=== PATIENT | female | born 1995 | race Caucasian/White ===

== ENCOUNTER 2017-07-21 21:51 | Emergency (ER) ==
[2017-07-21 22:05] VITALS: BP 142/90; TEMP 99; BMI 40.5
--- NOTE | 2017-07-21 22:17 | ED.PDOC ---
General ED Provider: Dr. RONY DIMAS Chief Complaint: Shortness of Air Stated Complaint: Patient is a 21 year old female who comes to the ER with feeling short of breath with pressure to chest since this PM. Complains of a productive cough, not sure of color. She denies fever, vomiting, or diarrhea but admits to nausea. Location of the pain is mid-sternum area Time Seen by Physician: 22:17 Mode of Arrival: Walk-In Information Source: Patient Exam Limitations: No limitations Primary Care Provider: SHELLY EATON Nursing and Triage Documentation Reviewed and Agree: Yes Reviewed sepsis parameters & appropriate labs ordered?: No System Inflammatory Response Syndrome: Not Applicable Sepsis Protocol: For patient's 13 years and over: Temp is 96.8 and below OR 101 and greater Pulse >90 BPM Resp >20/minute Acutely Altered Mental Status Are patient's symptoms suggestive of a new infection, such as: -Pneumonia -Skin, Soft Tissue -Endocarditis -UTI -Bone, Joint Infection -Implantable Device -Acute Abdominal Infection -Wound Infection -Meningitis -Blood Stream Catheter Infection -Unknown System Inflammatory Response Syndrome: Not Applicable Review of Systems - Review Of Systems Constitutional: Reports: No symptoms Eyes: Reports: No symptoms Ears, Nose, Mouth, Throat: Reports: No symptoms Respiratory: Reports: Cough, Short of air Cardiac: Reports: Chest pain GI: Reports: Nausea, Poor appetite : Reports: No symptoms Musculoskeletal: Reports: No symptoms Skin: Reports: No symptoms Neurological: Reports: No symptoms Endocrine: Reports: No symptoms Hematologic/Lymphatic: Reports: No symptoms All Other Systems: Reviewed and Negative Past Medical History - Past Medical History Endocrine: Reports: Hypothyroid Cardiovascular: Reports: Hypertension Respiratory: Reports: None Hematological: Reports: None Gastrointestinal: Reports: GERD Genitourinary: Reports: None Neuro/Psych: Reports: Anxiety, Depression, Bipolar Disorder Musculoskeletal: Reports: None Cancer: Reports: None Last Menstrual Period: LAST MONTH - Surgical History General Surgical History: Reports: Cholecystectomy, Tonsillectomy, Adenoidectomy , Other (Thyroidectomy, Eye surgery right eye, D and C ) - Family History Family History: Reports: None - Social History Smoking Status: Current every day smoker, Heavy tobacco smoker Hx Substance Use: No Alcohol Screening: Occasionally - Immunizations Tetanus Shot up to Date: Yes Physical Exam - Physical Exam Appearance: Well-appearing, Obese Eyes: CLIFF, EOMI, Conjunctiva clear Neck: Supple Respiratory: Airway patent, Breath sounds clear, Breath sounds equal, Respirations nonlabored Cardiovascular: RRR, Pulses normal, No rub, No murmur GI/: Soft, Nontender, No masses, Bowel sounds normal, No Organomegaly Musculoskeletal: Normal strength, ROM intact, No edema, No calf tenderness Skin: Warm, Dry, Normal color Neurological: Sensation intact, Motor intact, Reflexes intact, Cranial nerves intact, Alert, Oriented Psychiatric: Anxious Interpretation - Radiology Interpretation Radiology Interpretation By: ED Physician Radiology Results: Negative Exam Interpreted: Portable CXR - EKG Interpretation Time of EKG #1: 22:30 Rate: Normal Rhythm: Sinus Ectopy: None Interpretation: Left Atrial Enlargement. Critical Care Note - Critical Care Note Total Time (mins): 0 Course - Course Hematology/Chemistry: 07/21/17 22:28 07/21/17 22:28 Orders, Labs, Meds: Lab Review 07/21/17 07/21/17 07/21/17 22:28 22:28 22:28 WBC 7.91 RBC 4.19 L Hgb 13.3 Hct 37.9 MCV 90.5 MCH 31.7 H MCHC 35.1 RDW Coeff of Benigno 12.6 Plt Count 303 Immature Gran % (Auto) 0.3 Neut % (Auto) 50.6 Lymph % (Auto) 41.3 [place] % (Auto) 4.7 Eos % (Auto) 2.5 Baso % (Auto) 0.6 Immature Gran # (Auto) 0.0 Neut # (Auto) 4.0 Lymph # (Auto) 3.3 [place] # (Auto) 0.4 Eos # (Auto) 0.2 Baso # (Auto) 0.1 D-Dimer (Manual) 425.32 Sodium 141 Potassium 3.4 L Chloride 110 H Carbon Dioxide 21 Anion Gap 13.4 BUN 10 Creatinine 0.73 Estimated GFR (MDRD) 99.00 BUN/Creatinine Ratio 13.69 Glucose 106 Calcium 8.5 Total Bilirubin < 0.3 AST 18 ALT 20 Alkaline Phosphatase 111 H Total Creatine Kinase 148 CK-MB (CK-2) 0.8 CK-MB (CK-2) % 0.00584 Troponin I < 0.0100 Total Protein 6.8 Albumin 3.7 Globulin 3.1 Albumin/Globulin Ratio 1.19 Urine Test 07/21/17 22:50 WBC RBC Hgb Hct MCV MCH MCHC RDW Coeff of Benigno Plt Count Immature Gran % (Auto) Neut % (Auto) Lymph % (Auto) [place] % (Auto) Eos % (Auto) Baso % (Auto) Immature Gran # (Auto) Neut # (Auto) Lymph # (Auto) [place] # (Auto) Eos # (Auto) Baso # (Auto) D-Dimer (Manual) Sodium Potassium Chloride Carbon Dioxide Anion Gap BUN Creatinine Estimated GFR (MDRD) BUN/Creatinine Ratio Glucose Calcium Total Bilirubin AST ALT Alkaline Phosphatase Total Creatine Kinase CK-MB (CK-2) CK-MB (CK-2) % Troponin I Total Protein Albumin Globulin Albumin/Globulin Ratio Urine Test Negative Orders Category Date Time Status EKG-(ED ONLY) Stat CARDIO 07/21/17 22:18 Ordered CBC W/ AUTO DIFF Stat LAB 07/21/17 22:28 Completed COMPREHENSIVE METABOLIC PANEL Stat LAB 07/21/17 22:28 Completed CREATINE KINASE Stat LAB 07/21/17 22:28 Completed D-DIMER Stat LAB 07/21/17 22:28 Completed TROPONIN I Stat LAB 07/21/17 22:28 Completed URINE Stat LAB 07/21/17 22:50 Completed CHEST, 1V AP ONLY Stat RADS 07/21/17 22:18 Taken Vital Signs: Temp Pulse Resp BP Pulse Ox 07/21/17 21:52 99 F 88 20 142/90 H 98 Departure - Departure Time of Disposition: 23:18 Disposition: HOME SELF-CARE Discharge Problem: Bronchitis Instructions: Acute Bronchitis (ED), How to Stop Smoking (ED) Condition: Stable Pt referred to PMD for follow-up: Yes IPMP verified?: No Additional Instructions: Stop smoking Take Medications as prescribed Follow up with PCP in 3 days Prescriptions: Azithromycin [Zithromax Tri-Jc] 500 mg PO DAILY #3 tablet Methylprednisolone [Medrol Dosepak] 4 mg PO DIRECTED #1 pkg Allergies/Adverse Reactions: Allergies morphine Adverse Reaction (Verified 07/21/17 22:01) REDNESS, BURNING AND ITCHING Home Medications: Ambulatory Orders Azithromycin [Zithromax Tri-Jc] 500 mg PO DAILY #3 tablet 07/21/17 Esomeprazole Magnesium [Nexium] 40 mg PO BID 07/21/17 Fluoxetine HCl [Prozac] 40 mg PO DAILY 07/21/17 Lamotrigine [Lamictal] 100 mg PO DAILY 07/21/17 Levothyroxine Sodium [Synthroid] 200 mcg PO DAILY 07/21/17 Methylprednisolone [Medrol Dosepak] 4 mg PO DIRECTED #1 pkg 07/21/17 Norethindrone AC-Eth Estradiol [Loestrin 21 1-20 Tablet] 1 each PO DAILY Disposition Discussed With: Patient, Family
--- NOTE | 2017-07-22 07:36 | DI ---
EXAM: Single view of the chest HISTORY: Chest pain and shortness of breath. COMPARISON: None FINDINGS: Cardiomediastinal silhouette is normal. There is no pneumothorax or pleural effusion. The re is no consolidation, nodule or mass. The osseous structures are unremarkable. IMPRESSION: No acute cardiopulmonary process.
== END 2017-07-21 23:34 | disposition home or self-care (01) ==
LOC: ED 21:51
DX: J40 Bronchitis, not specified as acute or chronic (principal); F17.210 Nicotine dependence, cigarettes, uncomplicated; I10 Essential (primary) hypertension; E03.9 Hypothyroidism, unspecified
CPT/HCPCS: 36415; 80053; 81025; 82550; 82553; 84484; 85025; 85379; 93005; 93010; 99283

== ENCOUNTER 2017-08-12 08:10 | Outpatient (CLI) ==
--- NOTE | 2017-08-12 08:51 | US ---
EXAM: Ultrasound abdomen limited right upper quadrant HISTORY: Epigastric pain COMPARISON: None TECHNIQUE: Limited ultrasound abdomen right upper quadrant was performed FINDINGS: Visualized portion pancreas appears normal. Portions of the pancreas obscured secondary b owel gas shadowing. Liver normal in size and echogenicity. Main portal vein patent with normal dire ction of flow. Patient status post cholecystectomy. No biliary duct dilation with common bile duct measuring 0.4 cm. IMPRESSION: Status post cholecystectomy. No biliary duct dilation.
== END 2017-08-12 08:11 | disposition home or self-care (01) ==
LOC: RAD 08:10
PROVIDERS: ATTEND Family Medicine
DX: R10.13 Epigastric pain (principal)

== ENCOUNTER 2017-10-03 14:33 | Emergency (ER) | payer OTHER ==
[2017-10-03 14:37] VITALS: BP 141/104; TEMP 99.1; BMI 39.9
[2017-10-03] MEDS ORDERED: MORPHINE 4 MG/ML SYRINGE IM STA (14:52)
[2017-10-03] MEDS ORDERED: ZOFRAN 4 MG/2 ML IM STA (14:53)
[2017-10-03] MEDS ORDERED: DILAUDID IM STA (15:10)
[2017-10-03] MEDS: DILAUDID IVP STA ×2 (15:19→17:08)
--- NOTE | 2017-10-03 16:20 | CT ---
Exam: CT abdomen pelvis with intravenous contrast. Comparison: None available. Reason for exam: Pain. FINDINGS: No pleural effusion, or focal consolidation. The liver, spleen, adrenal glands, and pancreas appear grossly unremarkable. The gallbladder has been removed. No hydronephrosis, hydroureter, or nephrolithiasis in either kidney. Fluid-filled loops of small bowel are seen throughout the abdomen with mild small bowel wall thickeni ng. No inflammatory changes are seen within the abdominal or pelvic fat. No intra-abdominal free air or pelvic free fluid. The bladder appears grossly unremarkable although evaluation is limited by non distension. Small foci of air are seen in the right buttock soft tissues likely injections No suspicious appearing osteoblastic or osteolytic lesions. Impression: 1. Fluid-filled loops of small bowel with mild small bowel wall thickening. Imaging findings can be seen physiologically but may also be seen with enteritis. 2. Otherwise, no inflammatory findings are seen within the abdomen or pelvis. 3. Air in the subcutaneous fat of the right buttock presumably from injections.
--- NOTE | 2017-10-03 16:46 | ED.PDOC ---
General ED Provider: Dr. ADELA DOZIER Chief Complaint: Abdominal Pain Stated Complaint: abdominal pain Time Seen by Physician: 14:33 Mode of Arrival: Walk-In Information Source: Patient Exam Limitations: No limitations Primary Care Provider: SHELLY EATON Nursing and Triage Documentation Reviewed and Agree: Yes Reviewed sepsis parameters & appropriate labs ordered?: Yes System Inflammatory Response Syndrome: Not Applicable Sepsis Protocol: For patient's 13 years and over: Temp is 96.8 and below OR 101 and greater Pulse >90 BPM Resp >20/minute Acutely Altered Mental Status Are patient's symptoms suggestive of a new infection, such as: -Pneumonia -Skin, Soft Tissue -Endocarditis -UTI -Bone, Joint Infection -Implantable Device -Acute Abdominal Infection -Wound Infection -Meningitis -Blood Stream Catheter Infection -Unknown System Inflammatory Response Syndrome: Not Applicable GI Complaint Exam - Abdominal Pain Complaint/Exam Onset: Gradual Duration: 3 days Symptoms Are: Still present Timing: Intermittent Initial Severity: Moderate Current Severity: Moderate Location of Pain: Diffuse Radiates To: Reports: Back (right ). Denies: Chest, Flank, LLQ, RLQ, Inguinal Character: Reports: Sharp Aggravating: Reports: None Alleviating: Reports: None Associated Signs and Symptoms: Reports: Back pain, Decreased appetite, Nausea, Vomiting (x4/24 hr). Denies: Diaphoresis, Fever, Cough, Chest pain, Dizziness, Constipation, Blood in stool, Dysuria, Urinary frequency, Decreased urine output , Vaginal bleeding, Vaginal discharge, Diarrhea, Sore throat, Decreased activity : 2 Para: 1 Hx Total # of Abortions (Spontaneous & Elective): 1 AAA Risk Factors: Reports: None Cardiac Risk Factors: Reports: None Ectopic Risk Factors: Reports: None Ovarian Torsion Risk Factors: Reports: None Surgical Obstruction Risk Factors: Reports: None Related Surgical History: Reports: Cholecystectomy Differential Diagnoses: Bowel Obstruction, Constipation, Gastroenteritis, Pancreatitis Review of Systems - Review Of Systems Constitutional: Reports: No symptoms Eyes: Reports: No symptoms Ears, Nose, Mouth, Throat: Reports: No symptoms Respiratory: Reports: No symptoms Cardiac: Reports: No symptoms GI: Reports: Abdominal pain, Nausea, Vomiting : Reports: No symptoms Musculoskeletal: Reports: No symptoms Skin: Reports: No symptoms Neurological: Reports: No symptoms Endocrine: Reports: No symptoms Hematologic/Lymphatic: Reports: No symptoms All Other Systems: Reviewed and Negative Past Medical History - Past Medical History Endocrine: Reports: Hypothyroid Cardiovascular: Reports: Hypertension Respiratory: Reports: None Hematological: Reports: None Gastrointestinal: Reports: GERD Genitourinary: Reports: None Neuro/Psych: Reports: Anxiety, Depression, Bipolar Disorder Musculoskeletal: Reports: None Cancer: Reports: None Last Menstrual Period: SEPTEMBER 20 - Surgical History General Surgical History: Reports: Cholecystectomy, Tonsillectomy, Adenoidectomy , Other (Thyroidectomy, Eye surgery right eye, D and C ) - Family History Family History: Reports: None - Social History Smoking Status: Current every day smoker, Heavy tobacco smoker Hx Substance Use: No Alcohol Screening: Occasionally Physical Exam - Physical Exam Appearance: Well-appearing, No pain distress, Well-nourished Eyes: CLIFF, EOMI, Conjunctiva clear ENT: Ears normal, Nose normal, Oropharynx normal Respiratory: Airway patent, Breath sounds clear, Breath sounds equal, Respirations nonlabored Cardiovascular: RRR, Pulses normal, No rub, No murmur GI/: Soft, Nontender, No masses, Bowel sounds normal, No Organomegaly Musculoskeletal: Normal strength, ROM intact, No edema, No calf tenderness Skin: Warm, Dry, Normal color Neurological: Sensation intact, Motor intact, Reflexes intact, Cranial nerves intact, Alert, Oriented Psychiatric: Affect appropriate, Mood appropriate Interpretation - Radiology Interpretation Radiology Interpretation By: Radiologist Radiology Results: No acute changes Critical Care Note - Critical Care Note Total Time (mins): 0 Course - Course Hematology/Chemistry: 10/03/17 14:57 10/03/17 14:57 Orders, Labs, Meds: Lab Review 10/03/17 10/03/17 10/03/17 14:57 14:57 14:57 WBC 8.45 RBC 4.25 Hgb 13.3 Hct 37.8 MCV 88.9 MCH 31.3 H MCHC 35.2 RDW Coeff of Benigno 12.2 Plt Count 306 Immature Gran % (Auto) 0.2 Neut % (Auto) 53.8 Lymph % (Auto) 38.5 [place] % (Auto) 4.9 Eos % (Auto) 2.1 Baso % (Auto) 0.5 Immature Gran # (Auto) 0.0 Neut # (Auto) 4.6 Lymph # (Auto) 3.3 [place] # (Auto) 0.4 Eos # (Auto) 0.2 Baso # (Auto) 0.0 Sodium 140 Potassium 3.5 Chloride 110 H Carbon Dioxide 22 Anion Gap 11.5 BUN 8 Creatinine 0.77 Estimated GFR (MDRD) 93.00 BUN/Creatinine Ratio 10.38 Glucose 97 Calcium 8.9 Total Bilirubin 0.3 AST 21 ALT 25 Alkaline Phosphatase 111 H Total Protein 7.1 Albumin 3.7 Globulin 3.4 Albumin/Globulin Ratio 1.09 Amylase 35 Lipase 32 Serum , Qual Negative Urine Color Urine Clarity Urine pH Ur Specific Percival Urine Protein Urine Glucose (UA) Urine Ketones Urine Blood Urine Nitrite Urine Bilirubin Urine Urobilinogen Ur Leukocyte Esterase Urine Microscopic WBC Ur Squamous Epith Cells Urine Bacteria Urine Mucus 10/03/17 15:10 WBC RBC Hgb Hct MCV MCH MCHC RDW Coeff of Benigno Plt Count Immature Gran % (Auto) Neut % (Auto) Lymph % (Auto) [place] % (Auto) Eos % (Auto) Baso % (Auto) Immature Gran # (Auto) Neut # (Auto) Lymph # (Auto) [place] # (Auto) Eos # (Auto) Baso # (Auto) Sodium Potassium Chloride Carbon Dioxide Anion Gap BUN Creatinine Estimated GFR (MDRD) BUN/Creatinine Ratio Glucose Calcium Total Bilirubin AST ALT Alkaline Phosphatase Total Protein Albumin Globulin Albumin/Globulin Ratio Amylase Lipase Serum , Qual Urine Color Yellow Urine Clarity Cloudy Urine pH 6.0 Ur Specific Percival 1.025 Urine Protein 1+ Urine Glucose (UA) Negative Urine Ketones Trace Urine Blood Negative Urine Nitrite Negative Urine Bilirubin 1+ Urine Urobilinogen 1.0 Ur Leukocyte Esterase Negative Urine Microscopic WBC 0-2 Ur Squamous Epith Cells Tntc Urine Bacteria Trace Urine Mucus 3+ Orders Category Date Time Status NPO REMINDER: IMAGING ONCE CARE 10/03/17 15:26 Completed AMYLASE Stat LAB 10/03/17 14:57 Completed CBC W/ AUTO DIFF Stat LAB 10/03/17 14:57 Completed COMPREHENSIVE METABOLIC PANEL Stat LAB 10/03/17 14:57 Completed LIPASE Stat LAB 10/03/17 14:57 Completed SERUM Stat LAB 10/03/17 14:57 Completed URINALYSIS C & S IF INDICATED Stat LAB 10/03/17 15:10 Completed Hydromorphone HCl [Dilaudid] MEDS 10/03/17 15:03 Discontinued 0.5 mg IVP ONCE STA Ondansetron HCl/Pf [Zofran 4 mg/2 ml] MEDS 10/03/17 14:53 Discontinued 4 mg IM ONCE STA CT ABDOMEN/PELVIS W CONTRAST Stat RADS 10/03/17 15:25 Completed Medications Discontinued Medications Generic Name Dose Route Start Last Admin Trade Name Roosevelt PRN Reason Stop Dose Admin Hydromorphone HCl 0.5 mg 10/03/17 15:03 10/03/17 15:19 Dilaudid IVP 10/03/17 15:04 0.5 mg ONCE STA Administration Ondansetron HCl 4 mg 10/03/17 14:53 10/03/17 15:19 Zofran 4 Mg/2 Ml IM 10/03/17 14:54 4 mg ONCE STA Administration Vital Signs: Temp Pulse Resp BP Pulse Ox 10/03/17 14:33 99.1 F 104 H 18 141/104 H 95 Departure - Departure Time of Disposition: 17:00 Disposition: HOME SELF-CARE Discharge Problem: Abdominal pain, Acute gastroenteritis Instructions: Abdominal Pain (ED) Condition: Good Pt referred to PMD for follow-up: Yes IPMP verified?: No Additional Instructions: Please call your Family Physician as soon as possible to schedule a follow-up appointment. Allergies/Adverse Reactions: Allergies morphine Adverse Reaction (Verified 10/03/17 14:37) REDNESS, BURNING AND ITCHING Home Medications: Ambulatory Orders Esomeprazole Magnesium [Nexium] 40 mg PO BID 07/21/17 Fluoxetine HCl [Prozac] 40 mg PO DAILY 07/21/17 Lamotrigine [Lamictal] 100 mg PO DAILY 07/21/17 Levothyroxine Sodium [Synthroid] 200 mcg PO DAILY 07/21/17 Norethindrone AC-Eth Estradiol [Loestrin 21 1-20 Tablet] 1 each PO DAILY Hydrocodone/Acetaminophen [[place] 10-325 Tablet] 1 each PO Q8HR #14 tablet
== END 2017-10-03 17:00 | disposition home or self-care (01) ==
LOC: ED 14:33
DX: K52.9 Noninfective gastroenteritis and colitis, unspecified (principal); I10 Essential (primary) hypertension; E03.9 Hypothyroidism, unspecified; F17.210 Nicotine dependence, cigarettes, uncomplicated; Z79.899 Other long term (current) drug therapy
CPT/HCPCS: 36415; 80053; 81001; 82150; 83690; 84703; 85025; 96372; 99283

== ENCOUNTER 2017-10-24 20:53 | Emergency (ER) ==
[2017-10-24] MEDS ORDERED: PHENERGAN 25 MG/ML VIAL 25 MG in SODIUM CHLORIDE 50 ML IV STA (20:58)
[2017-10-24] MEDS ORDERED: DILAUDID IVP STA ×2 (20:58→21:54)
[2017-10-24] MEDS ORDERED: PROTONIX IV IVP STA (20:59)
[2017-10-24 21:00] VITALS: BP 151/103; TEMP 98.3; BMI 41.3
[2017-10-24] MEDS ORDERED: PHENERGAN 25 MG/ML VIAL ONE (21:10)
--- NOTE | 2017-10-24 22:21 | CT ---
Exam: CT of the abdomen and pelvis with contrast History: Right upper quadrant pain Technique: [address] of the abdomen and pelvis following intravenous contrast. Contrast is excretory phase. Multiplanar reformations were performed. FINDINGS: Technically inhibited secondary to delayed contrast excretory phase. See chest CT earlier same day the lung bases. No significant liver abnormality. The adrenals, pancreas and spleen are unr emarkable. The stomach and hiatus are unremarkable.Prior cholecystectomy. Kidneys and proximal collec ting system are unremarkable. The appendix is normal. Bowel loops demonstrate normal caliber. No infl amatory change seen in the mesentery or retroperitoneum. Vascular structures appear normal. Pelvic genitourinary structures appear normal. Pelvic bowel loops are unremarkable. No inflammatory c hange in the pelvic fat. No acute abnormality of the abdominal or pelvic skeleton. Impression: 1. No inflammatory process, bowel or urinary obstruction is seen. No acute findings of the abdomen or pelvis.
--- NOTE | 2017-10-24 22:45 | CT ---
Exam: CT angiography of the chest History: Chest pain Technique: [address] of the chest utilizing CT angiography protocol. Multiplanar and max imum intensity projection reformations were performed. FINDINGS: Technically adequate for evaluation of pulmonary arteries and aorta. There are no pulmona ry artery filling defects. The the lung windows show no pulmonary parenchymal abnormalities. The hea rt, great vessels and pericardium appear normal including the aorta. No pathologic lymph node enlarg ement or abundance. No acute findings of the chest wall soft tissues or bony thorax. No abnormaliti es of the upper abdomen. Impression: 1. No evidence of pulmonary artery thrombus. No acute findings of the chest.
--- NOTE | 2017-10-24 23:14 | ED.PDOC ---
General ED Provider: Dr. CHELO AL-ER Chief Complaint: Abdominal Pain Stated Complaint: im hurting Time Seen by Physician: 20:55 Mode of Arrival: Walk-In Information Source: Patient Exam Limitations: No limitations Primary Care Provider: SHELLY EATON Nursing and Triage Documentation Reviewed and Agree: Yes Reviewed sepsis parameters & appropriate labs ordered?: Yes System Inflammatory Response Syndrome: Not Applicable Sepsis Protocol: For patient's 13 years and over: Temp is 96.8 and below OR 101 and greater Pulse >90 BPM Resp >20/minute Acutely Altered Mental Status Are patient's symptoms suggestive of a new infection, such as: -Pneumonia -Skin, Soft Tissue -Endocarditis -UTI -Bone, Joint Infection -Implantable Device -Acute Abdominal Infection -Wound Infection -Meningitis -Blood Stream Catheter Infection -Unknown GI Complaint Exam - Abdominal Pain Complaint/Exam Onset: Sudden Duration: several hours Symptoms Are: Still present Timing: Constant Initial Severity: Mild Current Severity: Moderate Location of Pain: Discrete, RUQ Character: Reports: Dull, Aching, Cramping Aggravating: Reports: None Alleviating: Reports: None Associated Signs and Symptoms: Reports: Nausea Related Surgical History: Reports: Cholecystectomy Patient Rh Status: Unknown Abdominal Findings: Present: None. Absent: Rebound tenderness, Peritoneal signs Differential Diagnoses: Pancreatitis Quality Indicator For Non-Traumatic Chest Pain/Syncope: EKG Performed Review of Systems - Review Of Systems Constitutional: Reports: No symptoms Eyes: Reports: No symptoms Ears, Nose, Mouth, Throat: Reports: No symptoms Respiratory: Reports: No symptoms Cardiac: Reports: No symptoms GI: Reports: Abdominal pain, Nausea, Vomiting : Reports: No symptoms Musculoskeletal: Reports: No symptoms Skin: Reports: No symptoms Neurological: Reports: No symptoms Endocrine: Reports: No symptoms Hematologic/Lymphatic: Reports: No symptoms All Other Systems: Reviewed and Negative Past Medical History - Past Medical History Previously Healthy: No Endocrine: Reports: Hypothyroid Cardiovascular: Reports: Hypertension Respiratory: Reports: None Hematological: Reports: None Gastrointestinal: Reports: GERD Genitourinary: Reports: None Neuro/Psych: Reports: Anxiety, Depression, Bipolar Disorder Musculoskeletal: Reports: None Cancer: Reports: None Last Menstrual Period: [id number] - Surgical History General Surgical History: Reports: Cholecystectomy, Tonsillectomy, Adenoidectomy , Other (Thyroidectomy, Eye surgery right eye, D and C ) - Family History Family History: Reports: None - Social History Smoking Status: Current every day smoker, Heavy tobacco smoker Hx Substance Use: No Alcohol Screening: Occasionally - Immunizations Tetanus Shot up to Date: Yes Physical Exam - Physical Exam Appearance: Well-appearing, No pain distress, Well-nourished Pain Distress: Moderate Eyes: CLIFF, EOMI, Conjunctiva clear ENT: Ears normal, Nose normal, Oropharynx normal Respiratory: Airway patent Cardiovascular: RRR, Pulses normal, No rub, No murmur GI/: Soft, No masses, Bowel sounds normal, No Organomegaly, Tender Musculoskeletal: Normal strength, ROM intact, No edema, No calf tenderness Skin: Warm Neurological: Sensation intact Psychiatric: Affect appropriate, Mood appropriate Interpretation - Radiology Interpretation Radiology Interpretation By: Radiologist Radiology Results: Negative Exam Interpreted: CT Scan - EKG Interpretation Time of EKG #1: 23:14 Rate: Normal Rhythm: Sinus Ectopy: None Witt: NL ST Segment: Normal Re-Evaluation - Re-Evaluation Time of Re-Evaluation: 23:14 Status: Improved Vital Signs Stable: Yes Pain Level: 1 Appearance: NAD Lungs: Clear Skin: Warm and Dry Neuro: Alert and Oriented X3 CV: RRR Critical Care Note - Critical Care Note Total Time (mins): 0 Course - Course Hematology/Chemistry: 10/24/17 21:07 10/24/17 21:07 Orders, Labs, Meds: Lab Review 10/24/17 10/24/17 10/24/17 21:07 21:07 21:07 WBC 9.02 RBC 4.31 Hgb 13.4 Hct 38.1 MCV 88.4 MCH 31.1 H MCHC 35.2 RDW Coeff of Benigno 12.3 Plt Count 331 Immature Gran % (Auto) 0.2 Neut % (Auto) 47.7 Lymph % (Auto) 42.7 [place] % (Auto) 5.4 Eos % (Auto) 3.0 Baso % (Auto) 1.0 Immature Gran # (Auto) 0.0 Neut # (Auto) 4.3 Lymph # (Auto) 3.9 H [place] # (Auto) 0.5 Eos # (Auto) 0.3 Baso # (Auto) 0.1 Sodium 138 Potassium 3.4 L Chloride 109 H Carbon Dioxide 19 L Anion Gap 13.4 BUN 8 Creatinine 0.73 Estimated GFR (MDRD) 99.00 BUN/Creatinine Ratio 10.95 Glucose 97 Calcium 8.7 Total Bilirubin 0.3 AST 18 ALT 20 Alkaline Phosphatase 110 H Total Protein 7.1 Albumin 3.6 Globulin 3.5 Albumin/Globulin Ratio 1.03 Amylase 45 Lipase 39 Serum , Qual Negative Urine Color Urine Clarity Urine pH Ur Specific [place] Urine Protein Urine Glucose (UA) Urine Ketones Urine Blood Urine Nitrite Urine Bilirubin Urine Urobilinogen Ur Leukocyte Esterase Urine Microscopic WBC Ur Squamous Epith Cells Urine Mucus 10/24/17 21:56 WBC RBC Hgb Hct MCV MCH MCHC RDW Coeff of Benigno Plt Count Immature Gran % (Auto) Neut % (Auto) Lymph % (Auto) [place] % (Auto) Eos % (Auto) Baso % (Auto) Immature Gran # (Auto) Neut # (Auto) Lymph # (Auto) [place] # (Auto) Eos # (Auto) Baso # (Auto) Sodium Potassium Chloride Carbon Dioxide Anion Gap BUN Creatinine Estimated GFR (MDRD) BUN/Creatinine Ratio Glucose Calcium Total Bilirubin AST ALT Alkaline Phosphatase Total Protein Albumin Globulin Albumin/Globulin Ratio Amylase Lipase Serum , Qual Urine Color Yellow Urine Clarity Clear Urine pH 6.0 Ur Specific [place] 1.020 Urine Protein Trace Urine Glucose (UA) Negative Urine Ketones Negative Urine Blood Negative Urine Nitrite Negative Urine Bilirubin Negative Urine Urobilinogen 0.2 Ur Leukocyte Esterase Trace Urine Microscopic WBC 2-5 Ur Squamous Epith Cells 10-20 Urine Mucus Trace Orders Category Date Time Status NPO REMINDER: IMAGING ONCE CARE 10/24/17 20:57 Completed IV [ED IV/MEDIPORT/POWERPORT] .ONCE EMERGENCY 10/24/17 20:57 Active AMYLASE Stat LAB 10/24/17 21:07 Completed CBC W/ AUTO DIFF Stat LAB 10/24/17 21:07 Completed COMPREHENSIVE METABOLIC PANEL Stat LAB 10/24/17 21:07 Completed LIPASE Stat LAB 10/24/17 21:07 Completed SERUM Stat LAB 10/24/17 21:07 Completed URINALYSIS C & S IF INDICATED Stat LAB 10/24/17 21:56 Completed 0.9 % Sodium Chloride [Saline Flush] MEDS 10/24/17 20:57 Ordered 1 syr IVF PRN PRN Hydromorphone HCl [Dilaudid] MEDS 10/24/17 20:58 Discontinued 0.5 mg IVP ONCE STA Hydromorphone HCl [Dilaudid] MEDS 10/24/17 21:54 Discontinued 0.5 mg IVP ONCE STA Pantoprazole Sodium [Protonix IV] MEDS 10/24/17 20:59 Discontinued 40 mg IVP ONCE STA Promethazine HCl [Phenergan 25 mg/ml Vial] MEDS 10/24/17 21:10 Discontinued 25 mg .ROUTE .STK-MED ONE Promethazine HCl [Phenergan 25 mg/ml Vial] 25 mg MEDS 10/24/17 20:58 Discontinued 0.9 % Sodium Chloride [Sodium Chloride] [address] ABDOMEN/PELVIS W CONTRAST Stat RADS 10/24/17 20:[address] CHEST PE PROTOCOL Stat RADS 10/24/17 20:57 Completed Medications Generic Name Dose Route Start Last Admin Trade Name Freq PRN Reason Stop Dose Admin Sodium Chloride 1 syr 10/24/17 20:57 10/24/17 21:21 Saline Flush IVF 1 syr PRN PRN Administration To flush IV Discontinued Medications Generic Name Dose Route Start Last Admin Trade Name Freq PRN Reason Stop Dose Admin Hydromorphone HCl 0.5 mg 10/24/17 20:58 10/24/17 21:20 Dilaudid IVP 10/24/17 20:59 0.5 mg ONCE STA Administration Hydromorphone HCl 0.5 mg 10/24/17 21:54 10/24/17 22:12 Dilaudid IVP 10/24/17 21:55 0.5 mg ONCE STA Administration Promethazine HCl 25 mg/ Sodium 51 mls @ 75 mls/hr 10/24/17 20:58 10/24/17 21: 19 Chloride IV 10/24/17 21:38 75 mls/hr ONCE STA Administration Pantoprazole Sodium 40 mg 10/24/17 20:59 10/24/17 21:20 Protonix Iv IVP 10/24/17 21:00 40 mg ONCE STA Administration Vital Signs: Temp Pulse Resp BP Pulse Ox 10/24/17 20:54 98.3 F 99 H 18 151/103 H 97 Departure - Departure Time of Disposition: 23:15 Disposition: HOME SELF-CARE Discharge Problem: Abdominal pain Instructions: Acute Abdominal Pain (ED) Condition: Good Pt referred to PMD for follow-up: Yes IPMP verified?: No Additional Instructions: f/u with pcp Allergies/Adverse Reactions: Allergies morphine Adverse Reaction (Verified 10/24/17 20:57) REDNESS, BURNING AND ITCHING Home Medications: Ambulatory Orders Esomeprazole Magnesium [Nexium] 40 mg PO BID 07/21/17 Fluoxetine HCl [Prozac] 40 mg PO DAILY 07/21/17 Lamotrigine [Lamictal] 100 mg PO DAILY 07/21/17 Levothyroxine Sodium [Synthroid] 200 mcg PO DAILY 07/21/17 Norethindrone AC-Eth Estradiol [Loestrin 21 1-20 Tablet] 1 each PO DAILY Disposition Discussed With: Patient
== END 2017-10-24 22:35 | disposition home or self-care (01) ==
LOC: ED 20:53
DX: R10.11 Right upper quadrant pain (principal); R11.2 Nausea with vomiting, unspecified; K21.9 Gastro-esophageal reflux disease without esophagitis; E03.9 Hypothyroidism, unspecified; I10 Essential (primary) hypertension; Z79.899 Other long term (current) drug therapy; F17.210 Nicotine dependence, cigarettes, uncomplicated; Z90.49 Acquired absence of other specified parts of digestive tract
CPT/HCPCS: 36415; 80053; 81001; 82150; 83690; 84703; 85025; 96365; 96375; 96376; 99284

== ENCOUNTER 2017-11-08 18:44 | Emergency (ER) ==
[2017-11-08 18:47] VITALS: BP 152/98; TEMP 98.9; BMI 41.3
[2017-11-08] MEDS ORDERED: ZOFRAN 4 MG/2 ML IVP STA (19:36)
[2017-11-08] MEDS ORDERED: DEMEROL 50 MG/ML VIAL IVP STA (19:36)
[2017-11-08] MEDS ORDERED: GI COCKTAIL PO STA ×2 (19:36→20:55)
--- NOTE | 2017-11-08 20:04 | ED.PDOC ---
General ED Provider: Dr. YO BAUTISTA Chief Complaint: Abdominal Pain Stated Complaint: Came for the epigastric abdominal pain, started 4 pm today, vomited some blood, had similar episode couple days ago, for which she was seen and evaluated at [facility]. they informed her that she has Bleeding hernia. per patient Time Seen by Physician: 20:00 Mode of Arrival: Walk-In Information Source: Patient Nursing and Triage Documentation Reviewed and Agree: Yes Reviewed sepsis parameters & appropriate labs ordered?: Yes System Inflammatory Response Syndrome: Not Applicable Sepsis Protocol: For patient's 13 years and over: Temp is 96.8 and below OR 101 and greater Pulse >90 BPM Resp >20/minute Acutely Altered Mental Status Are patient's symptoms suggestive of a new infection, such as: -Pneumonia -Skin, Soft Tissue -Endocarditis -UTI -Bone, Joint Infection -Implantable Device -Acute Abdominal Infection -Wound Infection -Meningitis -Blood Stream Catheter Infection -Unknown GI Complaint Exam - Abdominal Pain Complaint/Exam Onset: Gradual Symptoms Are: Still present Timing: Constant Initial Severity: Severe Current Severity: Severe Location of Pain: Epigastric Character: Reports: Dull, Aching, Cramping Aggravating: Reports: Food Alleviating: Reports: None Associated Signs and Symptoms: Reports: Nausea, Vomiting. Denies: Diaphoresis, Fever, Cough, Chest pain, Dizziness, Back pain, Constipation, Blood in stool, Dysuria, Urinary frequency, Decreased urine output, Decreased appetite, Vaginal bleeding, Vaginal discharge, Diarrhea, Sore throat, Decreased activity Related History: Reports: Similar episode AAA Risk Factors: Reports: None Cardiac Risk Factors: Reports: None Ectopic Risk Factors: Reports: None Ovarian Torsion Risk Factors: Reports: None Surgical Obstruction Risk Factors: Reports: None Related Surgical History: Reports: None Patient Rh Status: Unknown Abdominal Findings: Present: None Differential Diagnoses: PUD Review of Systems - Review Of Systems Constitutional: Reports: No symptoms Eyes: Reports: No symptoms Ears, Nose, Mouth, Throat: Reports: No symptoms Respiratory: Reports: No symptoms Cardiac: Reports: No symptoms GI: Reports: Abdominal pain : Reports: No symptoms Musculoskeletal: Reports: No symptoms Skin: Reports: No symptoms Neurological: Reports: No symptoms Endocrine: Reports: No symptoms Hematologic/Lymphatic: Reports: No symptoms All Other Systems: Reviewed and Negative Past Medical History - Past Medical History Previously Healthy: No Endocrine: Reports: Hypothyroid Cardiovascular: Reports: Hypertension Respiratory: Reports: None Hematological: Reports: None Gastrointestinal: Reports: GERD Genitourinary: Reports: None Neuro/Psych: Reports: Anxiety, Depression, Bipolar Disorder Musculoskeletal: Reports: None Cancer: Reports: None Last Menstrual Period: LAST MONTH - Surgical History General Surgical History: Reports: Cholecystectomy, Tonsillectomy, Adenoidectomy , Other (Thyroidectomy, Eye surgery right eye, D and C ) - Family History Family History: Reports: None - Social History Smoking Status: Current every day smoker, Heavy tobacco smoker Hx Substance Use: No Alcohol Screening: None - Immunizations Tetanus Shot up to Date: Yes Physical Exam - Physical Exam Appearance: Ill-appearing, Obese Eyes: CLIFF, EOMI, Conjunctiva clear ENT: Ears normal, Nose normal, Oropharynx normal Respiratory: Airway patent, Breath sounds clear, Breath sounds equal, Respirations nonlabored Cardiovascular: RRR, Pulses normal, No rub, No murmur GI/: Soft, Tender Musculoskeletal: Normal strength, ROM intact, No edema, No calf tenderness Skin: Warm, Dry, Normal color Neurological: Sensation intact, Motor intact, Reflexes intact, Cranial nerves intact, Alert, Oriented Psychiatric: Affect appropriate, Mood appropriate Interpretation - Radiology Interpretation Radiology Interpretation By: Radiologist Radiology Results: Negative Exam Interpreted: CT Scan Re-Evaluation - Re-Evaluation Time of Re-Evaluation: 21:59 Status: Improved Critical Care Note - Critical Care Note Total Time (mins): 30 Course - Course Hematology/Chemistry: 11/08/17 19:40 11/08/17 19:40 Orders, Labs, Meds: Lab Review 11/08/17 11/08/17 11/08/17 19:40 19:40 19:48 WBC 9.10 RBC 4.16 L Hgb 13.0 Hct 37.0 MCV 88.9 MCH 31.3 H MCHC 35.1 RDW Coeff of Benigno 12.3 Plt Count 285 Immature Gran % (Auto) 0.2 Neut % (Auto) 56.2 Lymph % (Auto) 34.7 [place] % (Auto) 5.5 Eos % (Auto) 2.9 Baso % (Auto) 0.5 Immature Gran # (Auto) 0.0 Neut # (Auto) 5.1 Lymph # (Auto) 3.2 [place] # (Auto) 0.5 Eos # (Auto) 0.3 Baso # (Auto) 0.1 Sodium 138 Potassium 3.4 L Chloride 110 H Carbon Dioxide 18 L Anion Gap 13.4 BUN 9 Creatinine 0.71 Estimated GFR (MDRD) 102.00 BUN/Creatinine Ratio 12.67 Glucose 125 H Calcium 8.6 Total Bilirubin 0.3 AST 18 ALT 20 Alkaline Phosphatase 109 H Total Protein 6.8 Albumin 3.5 Globulin 3.3 Albumin/Globulin Ratio 1.06 Amylase 45 Lipase 43 Urine Test Negative Urine Opiates Screen Ur Oxycodone Screen Urine Methadone Screen Ur Propoxyphene Screen Ur Barbiturates Screen U Tricyclic Antidepress Ur Phencyclidine Scrn Ur Amphetamine Screen U Methamphetamines Scrn U Benzodiazepines Scrn Urine Cocaine Screen U Cannabinoids Screen 11/08/17 19:48 WBC RBC Hgb Hct MCV MCH MCHC RDW Coeff of Benigno Plt Count Immature Gran % (Auto) Neut % (Auto) Lymph % (Auto) [place] % (Auto) Eos % (Auto) Baso % (Auto) Immature Gran # (Auto) Neut # (Auto) Lymph # (Auto) [place] # (Auto) Eos # (Auto) Baso # (Auto) Sodium Potassium Chloride Carbon Dioxide Anion Gap BUN Creatinine Estimated GFR (MDRD) BUN/Creatinine Ratio Glucose Calcium Total Bilirubin AST ALT Alkaline Phosphatase Total Protein Albumin Globulin Albumin/Globulin Ratio Amylase Lipase Urine Test Urine Opiates Screen Negative Ur Oxycodone Screen Negative Urine Methadone Screen Negative Ur Propoxyphene Screen Negative Ur Barbiturates Screen Negative U Tricyclic Antidepress Negative Ur Phencyclidine Scrn Negative Ur Amphetamine Screen Negative U Methamphetamines Scrn Negative U Benzodiazepines Scrn Negative Urine Cocaine Screen Negative U Cannabinoids Screen Negative Orders Category Date Time Status ED IV/MEDIPORT/POWERPORT .ONCE EMERGENCY 11/08/17 19:36 Active AMYLASE Stat LAB 11/08/17 19:40 Completed CBC W/ AUTO DIFF Stat LAB 11/08/17 19:40 Completed COMPREHENSIVE METABOLIC PANEL Stat LAB 11/08/17 19:40 Completed LIPASE Stat LAB 11/08/17 19:40 Completed URINE DRUG SCREEN (RAPID FOR ED) [DRUG SCREEN, URINE, LAB 11/08/17 19:48 Completed RAPID] Stat URINE Stat LAB 11/08/17 19:48 Completed 0.9 % Sodium Chloride [Saline Flush] MEDS 11/08/17 19:36 Ordered 1 syr IVF PRN PRN Hydromorphone HCl/Pf [Dilaudid 2 mg/ml Syringe] MEDS 11/08/17 20:11 Discontinued 2 mg IVP ONCE STA Mag-Al Plus//Lidocaine [Gi Cocktail] MEDS 11/08/17 19:36 Discontinued 30 ml PO ONCE STA Mag-Al Plus//Lidocaine [Gi Cocktail] MEDS 11/08/17 20:55 Discontinued 30 ml PO ONCE STA Meperidine HCl/Pf [Demerol 50 mg/ml Vial] MEDS 11/08/17 19:36 Discontinued 50 mg IVP ONCE STA Ondansetron HCl/Pf [Zofran 4 mg/2 ml] MEDS 11/08/17 19:36 Discontinued 4 mg IVP ONCE STA Promethazine HCl [Phenergan 25 mg/ml Vial] MEDS 11/08/17 20:13 Discontinued 25 mg .ROUTE .STK-MED ONE Promethazine HCl [Phenergan 25 mg/ml Vial] 25 mg MEDS 11/08/17 20:11 Discontinued 0.9 % Sodium Chloride [Sodium Chloride] [address] ABDOMEN/PELVIS WO CONTRAST Stat RADS 11/08/17 19:59 Completed Medications Generic Name Dose Route Start Last Admin Trade Name Freq PRN Reason Stop Dose Admin Sodium Chloride 1 syr 11/08/17 19:36 11/08/17 19:45 Saline Flush IVF 1 syr PRN PRN Administration To flush IV Discontinued Medications Generic Name Dose Route Start Last Admin Trade Name Freq PRN Reason Stop Dose Admin Al Hydroxide/Mg Hydroxide 30 ml 11/08/17 19:36 11/08/17 19:44 Gi Cocktail PO 11/08/17 19:37 30 ml ONCE STA Administration Al Hydroxide/Mg Hydroxide 30 ml 11/08/17 20:55 11/08/17 21:02 Gi Cocktail PO 11/08/17 20:56 30 ml ONCE STA Administration Hydromorphone HCl 2 mg 11/08/17 20:11 11/08/17 20:14 Dilaudid 2 Mg/Ml Syringe IVP 11/08/17 20:12 2 mg ONCE STA Administration Promethazine HCl 25 mg/ Sodium 51 mls @ 75 mls/hr 11/08/17 20:11 11/08/17 20: 15 Chloride IV 11/08/17 20:51 75 mls/hr ONCE STA Administration Meperidine HCl 50 mg 11/08/17 19:36 11/08/17 19:44 Demerol 50 Mg/Ml Vial IVP 11/08/17 19:37 50 mg ONCE STA Administration Ondansetron HCl 4 mg 11/08/17 19:36 11/08/17 19:43 Zofran 4 Mg/2 Ml IVP 11/08/17 19:37 4 mg ONCE STA Administration Vital Signs: Temp Pulse Resp BP Pulse Ox 11/08/17 18:45 98.9 F 115 H 22 152/98 H 97 Departure - Departure Time of Disposition: 21:59 Disposition: HOME SELF-CARE Discharge Problem: Abdominal pain, PUD (peptic ulcer disease) Instructions: Peptic Ulcer (ED) Condition: Stable Pt referred to PMD for follow-up: Yes IPMP verified?: No Additional Instructions: soft diet Increase Hydration Needs f/u with GI No spicy food no fried food Prescriptions: Pantoprazole Sodium [Protonix] 40 mg PO BIDAC #60 tablet. Sucralfate Susp [Carafate] 1 gm PO ACHS #1 bottle Allergies/Adverse Reactions: Allergies morphine Adverse Reaction (Verified 11/08/17 18:49) REDNESS, BURNING AND ITCHING Home Medications: Ambulatory Orders Esomeprazole Magnesium [Nexium] 40 mg PO BID 07/21/17 Fluoxetine HCl [Prozac] 40 mg PO DAILY 07/21/17 Lamotrigine [Lamictal] 100 mg PO DAILY 07/21/17 Levothyroxine Sodium [Synthroid] 200 mcg PO DAILY 07/21/17 Norethindrone AC-Eth Estradiol [Loestrin 21 1-20 Tablet] 1 each PO DAILY Pantoprazole Sodium [Protonix] 40 mg PO BIDAC #60 tablet. 11/08/17 Sucralfate Susp [Carafate] 1 gm PO ACHS #1 bottle 11/08/17 Disposition Discussed With: Patient
[2017-11-08] MEDS ORDERED: DILAUDID 2 MG/ML SYRINGE IVP STA (20:11)
[2017-11-08] MEDS ORDERED: PHENERGAN 25 MG/ML VIAL 25 MG in SODIUM CHLORIDE 50 ML IV STA (20:11)
[2017-11-08] MEDS ORDERED: PHENERGAN 25 MG/ML VIAL ONE (20:13)
--- NOTE | 2017-11-08 20:45 | CT ---
EXAM: CT abdomen and pelvis without contrast HISTORY: Abdominal pain TECHNIQUE: Multi-slice transaxial helical with coronal and sagittal reformed images COMPARISON: CT abdomen/pelvis from 10/24/2017 FINDINGS: The lung bases are free of acute airspace or interstitial opacities. The heart size is nor mal. There are no pericardial or pleural effusions. The hepatic attenuation is normal relative to the spleen. The gallbladder is absent without biliary dilatation. The pancreas adrenal glands are normal. The spleen has normal size and attenuation. The kidneys have normal size and attenuation. The ureters are nondilated and nonopacified bladder is normal. There are phleboliths in the pelvis. The uterus adnexa are grossly normal. The intestines including the appendix have normal caliber. No lymphadenopathy or ascites are detecte d. The aorta has normal caliber. The bones are free of suspicious osteolytic or osteoblastic lesions. IMPRESSION: 1. Nonobstructive intestinal gas pattern and normal appendix. 2. Normal renal collecting systems. 3. Previous cholecystectomy without biliary dilatation.
== END 2017-11-08 22:05 | disposition home or self-care (01) ==
LOC: ED 18:44
DX: K27.9 Peptic ulcer, site unspecified, unspecified as acute or chronic, without hemorrhage or perforation (principal); R10.13 Epigastric pain; R11.2 Nausea with vomiting, unspecified; F17.210 Nicotine dependence, cigarettes, uncomplicated; Z79.899 Other long term (current) drug therapy
CPT/HCPCS: 36415; 80053; 80306; 81025; 82150; 83690; 85025; 96374; 96375; 99283

== ENCOUNTER 2017-11-09 16:57 | Emergency (ER) ==
[2017-11-09 17:07] VITALS: BP 132/92; TEMP 99.1; BMI 40.1
--- NOTE | 2017-11-09 18:24 | ED.PDOC ---
General Stated Complaint: STOMACH APIN NAUSEA Time Seen by Physician: 18:15 Mode of Arrival: Walk-In Information Source: Patient Exam Limitations: No limitations Seen Within Last 72 Hours for Same Complaint By: ED, PCP Nursing and Triage Documentation Reviewed and Agree: Yes Reviewed sepsis parameters & appropriate labs ordered?: Yes System Inflammatory Response Syndrome: Not Applicable <CHELO TABARES - Last Filed: 11/09/17 19:09> <CHELO BARGER - Last Filed: 11/09/17 22:52> ED Provider: Dr. CHELO AL-FAITH Chief Complaint: Nausea/Vomiting Primary Care Provider: SHELLY EATON Sepsis Protocol: For patient's 13 years and over: Temp is 96.8 and below OR 101 and greater Pulse >90 BPM Resp >20/minute Acutely Altered Mental Status Are patient's symptoms suggestive of a new infection, such as: -Pneumonia -Skin, Soft Tissue -Endocarditis -UTI -Bone, Joint Infection -Implantable Device -Acute Abdominal Infection -Wound Infection -Meningitis -Blood Stream Catheter Infection -Unknown GI Complaint Exam - Vomiting/Diarrhea Complaint/Exam Onset/Duration: month Symptoms Are: Still present Initial Severity: Mild Current Severity: Moderate Character of Vomiting: Reports: Non-bilious Aggravating: Reports: None Alleviating: Reports: None Related History: Reports: Similar episode Menses: Regular Recent Positive Test: No Use of Oral Contraceptives: Yes Use of Depoprovera: No Compliant With Contraceptive Use: No Surgical Obstruction Risk Factors: Reports: Prior abdominal surgery Related Surgical History: Reports: Cholecystectomy Kussmaul Respirations Present: No Differential Diagnoses: Gastritis, Pancreatitis <CHELO TABARES Filed: 11/09/17 19:09> Review of Systems - Review Of Systems Constitutional: Reports: Weakness Eyes: Reports: No symptoms Ears, Nose, Mouth, Throat: Reports: No symptoms Respiratory: Reports: No symptoms Cardiac: Reports: No symptoms GI: Reports: Abdominal pain (epigastric area) : Reports: No symptoms Musculoskeletal: Reports: No symptoms Skin: Reports: No symptoms Neurological: Reports: No symptoms Endocrine: Reports: No symptoms Hematologic/Lymphatic: Reports: No symptoms All Other Systems: Reviewed and Negative <CHELO TABARES - Last Filed: 11/09/17 19:09> Past Medical History - Past Medical History Previously Healthy: No Endocrine: Reports: Hypothyroid Cardiovascular: Reports: Hypertension Respiratory: Reports: None Hematological: Reports: None Gastrointestinal: Reports: GERD Genitourinary: Reports: None Neuro/Psych: Reports: Anxiety, Depression, Bipolar Disorder Musculoskeletal: Reports: None Cancer: Reports: None Last Menstrual Period: last month - Surgical History General Surgical History: Reports: Cholecystectomy, Tonsillectomy, Adenoidectomy , Other (Thyroidectomy, Eye surgery right eye, D and C ) - Family History Family History: Reports: None - Social History Smoking Status: Current every day smoker, Heavy tobacco smoker Hx Substance Use: No Alcohol Screening: None <ELVINGISELLECHELO - Last Filed: 11/09/17 19:09> Physical Exam - Physical Exam Appearance: Ill-appearing Ill-appearing: Mild Pain Distress: Mild Eyes: CLIFF, EOMI, Conjunctiva clear ENT: Ears normal, Nose normal, Oropharynx normal Neck: Supple Respiratory: Airway patent, Breath sounds clear, Breath sounds equal, Respirations nonlabored Cardiovascular: RRR, Pulses normal, No rub, No murmur GI/: Bowel sounds normal, Tender (epigastric) Musculoskeletal: Normal strength, ROM intact, No edema, No calf tenderness Skin: Warm, Dry, Normal color Neurological: Sensation intact, Motor intact, Reflexes intact, Cranial nerves intact, Alert, Oriented Psychiatric: Affect appropriate, Mood appropriate <RAYSACHELO - Last Filed: 11/09/17 19:09> Critical Care Note - Critical Care Note Total Time (mins): 0 <RAYSACHELO - Last Filed: 11/09/17 19:09> Course - Course Hematology/Chemistry: 11/09/17 20:15 11/09/17 20:15 <CHARBELCHELO - Last Filed: 11/09/17 22:52> - Course Orders, Labs, Meds: Lab Review 11/09/17 11/09/17 11/09/17 18:48 18:48 20:15 WBC 8.49 RBC 4.49 Hgb 13.7 Hct 39.9 MCV 88.9 MCH 30.5 MCHC 34.3 RDW Coeff of Benigno 12.3 Plt Count 295 Immature Gran % (Auto) 0.1 Neut % (Auto) 56.4 Lymph % (Auto) 36.0 [place] % (Auto) 4.7 Eos % (Auto) 2.1 Baso % (Auto) 0.7 Immature Gran # (Auto) 0.0 Neut # (Auto) 4.8 Lymph # (Auto) 3.1 [place] # (Auto) 0.4 Eos # (Auto) 0.2 Baso # (Auto) 0.1 ESR 12 Sodium Potassium Chloride Carbon Dioxide Anion Gap BUN Creatinine Estimated GFR (MDRD) BUN/Creatinine Ratio Glucose Calcium Total Bilirubin AST ALT Alkaline Phosphatase Total Protein Albumin Globulin Albumin/Globulin Ratio Amylase 35 Lipase Serum , Qual Urine Color Urine Clarity Urine pH Ur Specific [place] Urine Protein Urine Glucose (UA) Urine Ketones Urine Blood Urine Nitrite Urine Bilirubin Urine Urobilinogen Ur Leukocyte Esterase Urine Microscopic RBC Urine Microscopic WBC Ur Squamous Epith Cells Urine Bacteria Urine Mucus H. pylori IgG Antibody Negative 11/09/17 11/09/17 11/09/17 20:15 20:15 22:18 WBC RBC Hgb Hct MCV MCH MCHC RDW Coeff of Benigno Plt Count Immature Gran % (Auto) Neut % (Auto) Lymph % (Auto) [place] % (Auto) Eos % (Auto) Baso % (Auto) Immature Gran # (Auto) Neut # (Auto) Lymph # (Auto) [place] # (Auto) Eos # (Auto) Baso # (Auto) ESR Sodium 137 Potassium 3.8 Chloride 109 H Carbon Dioxide 19 L Anion Gap 12.8 BUN 7 Creatinine 0.69 Estimated GFR (MDRD) 105.00 BUN/Creatinine Ratio 10.14 Glucose 89 Calcium 8.6 Total Bilirubin 0.4 AST 23 ALT 26 Alkaline Phosphatase 115 H Total Protein 7.2 Albumin 3.6 Globulin 3.6 Albumin/Globulin Ratio 1.00 Amylase 39 Lipase 37 Serum , Qual Negative Urine Color Dark Urine Clarity Clear Urine pH 5.5 Ur Specific [place] >=1.030 Urine Protein Negative Urine Glucose (UA) Negative Urine Ketones Negative Urine Blood Trace-intact Urine Nitrite Negative Urine Bilirubin Negative Urine Urobilinogen 0.2 Ur Leukocyte Esterase Trace Urine Microscopic RBC 2-5 Urine Microscopic WBC 5-10 Ur Squamous Epith Cells 5-10 Urine Bacteria Trace Urine Mucus 1+ H. pylori IgG Antibody Orders Category Date Time Status IV [ED IV/MEDIPORT/POWERPORT] .ONCE EMERGENCY 11/09/17 19:20 Active AMYLASE Stat LAB 11/09/17 18:48 Completed AMYLASE Stat LAB 11/09/17 20:15 Completed CBC W/ AUTO DIFF Stat LAB 11/09/17 20:15 Completed COMPREHENSIVE METABOLIC PANEL Stat LAB 11/09/17 20:15 Completed ESR Stat LAB 11/09/17 20:15 Completed H. PYLORI SCREEN Stat LAB 11/09/17 18:48 Completed LIPASE Stat LAB 11/09/17 20:15 Completed SERUM Stat LAB 11/09/17 20:15 Completed UA [URINALYSIS C & S IF INDICATED] Stat LAB 11/09/17 22:18 Completed URINE CULTURE Stat LAB 11/09/17 22:18 Received 0.9 % Sodium Chloride [Saline Flush] MEDS 11/09/17 19:20 Ordered 1 syr IVF PRN PRN Dicyclomine Inj [Bentyl] MEDS 11/09/17 20:43 Discontinued 10 mg IM ONCE STA Hydromorphone HCl [Dilaudid] MEDS 11/09/17 20:43 Discontinued 0.5 mg IVP ONCE STA Hydromorphone HCl [Dilaudid] MEDS 11/09/17 19:25 Discontinued 1 mg IVP ONCE STA Hydromorphone HCl [Dilaudid] MEDS 11/09/17 19:58 Discontinued 1 mg IVP ONCE STA Lorazepam [Ativan] MEDS 11/09/17 18:33 Discontinued 2 mg IVP ONCE STA Promethazine HCl [Phenergan 25 mg/ml Vial] MEDS 11/09/17 18:28 Discontinued 50 mg IM ONCE STA Sodium Chloride 0.9% [Sodium Chloride] 1,000 ml MEDS 11/09/17 18:[address] ABDOMEN/PELVIS WO CONTRAST Stat RADS 11/09/17 20:00 Completed Medications Generic Name Dose Route Start Last Admin Trade Name Freq PRN Reason Stop Dose Admin Sodium Chloride 1 syr 11/09/17 19:20 Saline Flush IVF PRN PRN To flush IV Discontinued Medications Generic Name Dose Route Start Last Admin Trade Name Freq PRN Reason Stop Dose Admin Dicyclomine HCl 10 mg 11/09/17 20:43 11/09/17 20:49 Bentyl IM 11/09/17 20:44 10 mg ONCE STA Administration Hydromorphone HCl 1 mg 11/09/17 19:25 11/09/17 19:34 Dilaudid IVP 11/09/17 19:26 1 mg ONCE STA Administration Hydromorphone HCl 1 mg 11/09/17 19:58 11/09/17 20:01 Dilaudid IVP 11/09/17 19:59 1 mg ONCE STA Administration Hydromorphone HCl 0.5 mg 11/09/17 20:43 11/09/17 20:48 Dilaudid IVP 11/09/17 20:44 0.5 mg ONCE STA Administration Sodium Chloride 1,000 mls @ 1,000 mls/hr 11/09/17 18:32 11/09/17 19:07 Sodium Chloride IV 11/09/17 19:31 1,000 mls/hr BOLUS STA Administration Lorazepam 2 mg 11/09/17 18:33 11/09/17 19:06 Ativan IVP 11/09/17 18:34 2 mg ONCE STA Administration Promethazine HCl 50 mg 11/09/17 18:28 11/09/17 19:05 Phenergan 25 Mg/Ml Vial IM 11/09/17 18:29 50 mg ONCE STA Administration Vital Signs: Temp Pulse Resp BP Pulse Ox 11/09/17 16:59 99.1 F 116 H 20 132/92 H 97 Departure <CHELO TABARES - Last Filed: 11/09/17 19:09> - Departure Time of Disposition: 19:25 Pt referred to PMD for follow-up: Yes IPMP verified?: No Transfer Form Completed: Yes Disposition Discussed With: Patient <CHELO BARGER - Last Filed: 11/09/17 22:52> - Departure Disposition: TSF SHORT-TRM HOSP Discharge Problem: Chronic abdominal pain Instructions: Chronic Abdominal Pain (ED) Condition: Good Additional Instructions: keep appt with gi tomorrow Allergies/Adverse Reactions: Allergies meperidine [From Demerol] Adverse Reaction (Verified 11/09/17 17:08) morphine Adverse Reaction (Verified 11/08/17 18:49) REDNESS, BURNING AND ITCHING Home Medications: Ambulatory Orders Esomeprazole Magnesium [Nexium] 40 mg PO BID 07/21/17 Fluoxetine HCl [Prozac] 40 mg PO DAILY 07/21/17 Lamotrigine [Lamictal] 100 mg PO DAILY 07/21/17 Levothyroxine Sodium [Synthroid] 200 mcg PO DAILY 07/21/17 Norethindrone AC-Eth Estradiol [Loestrin 21 1-20 Tablet] 1 each PO DAILY Pantoprazole Sodium [Protonix] 40 mg PO BIDAC #60 tablet. 11/08/17 Sucralfate Susp [Carafate] 1 gm PO ACHS #1 bottle 11/08/17
[2017-11-09] MEDS ORDERED: PHENERGAN 25 MG/ML VIAL IM STA (18:28)
[2017-11-09] MEDS ORDERED: SODIUM CHLORIDE 1,000 ML IV STA (18:32)
[2017-11-09] MEDS ORDERED: ATIVAN IVP STA (18:33)
[2017-11-09] MEDS ORDERED: DILAUDID IVP STA ×3 (19:25→20:43)
[2017-11-09] MEDS ORDERED: BENTYL IM STA (20:43)
--- NOTE | 2017-11-09 21:11 | CT ---
Exam: CT of the abdomen and pelvis without contrast History: Abdominal pain Technique: [address] of the abdomen and pelvis without intravascular contrast FINDINGS: The lung bases are clear. No significant liver abnormality. The adrenals, pancreas and spl een are unremarkable. The stomach and hiatus are unremarkable.Prior cholecystectomy. Kidneys and prox imal collecting system are unremarkable. The appendix is normal. Bowel loops demonstrate normal calib er. No inflamatory change seen in the mesentery or retroperitoneum. Vascular structures appear normal by noncontrast CT. Pelvic genitourinary structures appear normal. Pelvic bowel loops are unremarkable. No inflammatory c hange in the pelvic fat. No acute abnormality of the abdominal or pelvic skeleton. Impression: 1. No inflammatory process, bowel or urinary obstruction is seen. No acute findings of the abdomen or pelvis.
== END 2017-11-09 23:25 | disposition short-term general hospital (02) ==
LOC: ED 16:57
DX: R10.13 Epigastric pain (principal); G89.29 Other chronic pain; R11.2 Nausea with vomiting, unspecified; I10 Essential (primary) hypertension; E03.9 Hypothyroidism, unspecified; F17.210 Nicotine dependence, cigarettes, uncomplicated; Z79.899 Other long term (current) drug therapy
CPT/HCPCS: 36415; 80053; 81001; 82150; 83690; 84703; 85025; 85651; 86677; 87086; 96361; 96365; 96366; 96372; 96375; 96376; 99285

== ENCOUNTER 2017-11-15 23:03 | Emergency (ER) ==
[2017-11-15 23:17] VITALS: BP 152/83; TEMP 99.4; BMI 40.2
[2017-11-15] MEDS ORDERED: PHENERGAN 25 MG/ML VIAL 25 MG in SODIUM CHLORIDE 50 ML IV STA (23:34)
[2017-11-15] MEDS ORDERED: SODIUM CHLORIDE 1,000 ML IV STA (23:34)
[2017-11-15] MEDS ORDERED: ZOFRAN 4 MG/2 ML IVP STA (23:36)
[2017-11-15] MEDS ORDERED: ZOFRAN 4 MG/2 ML ONE (23:39)
[2017-11-16] MEDS ORDERED: BENTYL IM STA (00:53)
--- NOTE | 2017-11-16 00:55 | CT ---
EXAM: CT scan abdomen pelvis without contrast HISTORY: Vomiting diarrhea COMPARISON: CT scan abdomen pelvis 11/09/2017 FINDINGS: Contiguous axial images obtained through the abdomen pelvis without contrast utilizing 3-m m collimation. Sagittal and coronal reconstructions were imaged and reviewed.. The visualized lung bases are clear. There has been prior cholecystectomy. The liver, pancreas, spleen and adrenal glan ds have a normal unenhanced CT appearance. The kidneys are morphologically normal. Abdominal aorta i s normal course and caliber. There is no CT evidence of appendicitis. There is no free fluid or inf lammatory changes.. There is a tiny umbilical hernia containing only fat. Bone windows reveals no e vidence of lytic or blastic lesions. IMPRESSION: No acute intra-abdominal findings.
--- NOTE | 2017-11-16 01:00 | ED.PDOC ---
Procedures - IV/Art Line Insertion Location: lt forearm Type of Line: Peripheral IV Invasive Line/IV Catheter Gauge: 22 (10cc blood drawn for lab) Number of Attempts: 1 Blood Return Positive: Yes Invasive Line/IV Flushes Without Difficulty: Yes Conscious Sedation - Pre-op Assessment Weight: 249 lb 4.8 oz Surgical History: THYROIDECTOMY. T&A. EYE SURGERY RIGHT EYE, MUSCLE. D&C. GB. PILONIDAL CYST REMOVAL - Medical History Past Medical History: Hypertension, Thyroid, GERD, Depression, Anxiety, Migraines, Bipolar Other History: IBS - Physical Exam Heart Rate/Rhythm: Regular Rhythm
[2017-11-16] MEDS ORDERED: TYLENOL PO STA (01:24)
[2017-11-16] MEDS ORDERED: TYLENOL ONE (01:25)
[2017-11-16] MEDS ORDERED: POTASSIUM CHL 10% ORAL SOL PO STA (01:57)
[2017-11-16] MEDS ORDERED: ZOFRAN 4 MG/2 ML IVP STA (02:10)
--- NOTE | 2017-11-16 02:14 | ED.PDOC ---
General ED Provider: Dr. CHELO AL-ER Chief Complaint: Nausea/Vomiting Stated Complaint: im having vomiting and diarrhea Time Seen by Physician: 23:05 Mode of Arrival: Walk-In Information Source: Patient Exam Limitations: No limitations Nursing and Triage Documentation Reviewed and Agree: Yes Does patient meet sepsis criteria?: No System Inflammatory Response Syndrome: Not Applicable Sepsis Protocol: For patient's 13 years and over: Temp is 96.8 and below OR 101 and greater Pulse >90 BPM Resp >20/minute Acutely Altered Mental Status Are patient's symptoms suggestive of a new infection, such as: -Pneumonia -Skin, Soft Tissue -Endocarditis -UTI -Bone, Joint Infection -Implantable Device -Acute Abdominal Infection -Wound Infection -Meningitis -Blood Stream Catheter Infection -Unknown GI Complaint Exam - Vomiting/Diarrhea Complaint/Exam Onset/Duration: 24hrs Symptoms Are: Still present Initial Severity: Mild Current Severity: Moderate Character of Vomiting: Reports: Non-bilious Aggravating: Reports: None Alleviating: Reports: None Associated Signs and Symptoms: Reports: Abdominal pain Non-GI Risk Factors: Reports: None Surgical Obstruction Risk Factors: Reports: None Related Surgical History: Reports: Cholecystectomy Abdominal Findings: Present: None Kussmaul Respirations Present: No Differential Diagnoses: Dehydration, Viral Gastroenteritis, UTI Review of Systems - Review Of Systems Constitutional: Reports: No symptoms Eyes: Reports: No symptoms Ears, Nose, Mouth, Throat: Reports: No symptoms Respiratory: Reports: No symptoms Cardiac: Reports: No symptoms GI: Reports: Diarrhea, Nausea, Poor appetite, Vomiting : Reports: No symptoms Musculoskeletal: Reports: No symptoms Skin: Reports: No symptoms Neurological: Reports: No symptoms Endocrine: Reports: No symptoms Hematologic/Lymphatic: Reports: No symptoms All Other Systems: Reviewed and Negative Past Medical History - Past Medical History Previously Healthy: No Endocrine: Reports: Hypothyroid Cardiovascular: Reports: Hypertension Respiratory: Reports: None Hematological: Reports: None Gastrointestinal: Reports: GERD Genitourinary: Reports: None Neuro/Psych: Reports: Anxiety, Depression, Bipolar Disorder Musculoskeletal: Reports: None Cancer: Reports: None Last Menstrual Period: PRESENTLY - Surgical History General Surgical History: Reports: Cholecystectomy, Tonsillectomy, Adenoidectomy , Other (Thyroidectomy, Eye surgery right eye, D and C ) - Family History Family History: Reports: None - Social History Smoking Status: Current every day smoker, Heavy tobacco smoker Hx Substance Use: No Alcohol Screening: Occasionally - Immunizations Tetanus Shot up to Date: (UNKNOWN) Physical Exam - Physical Exam Appearance: Well-appearing, No pain distress, Well-nourished Eyes: CLIFF, EOMI, Conjunctiva clear ENT: Ears normal, Nose normal, Oropharynx normal Neck: Supple Respiratory: Airway patent Cardiovascular: RRR, Pulses normal, No rub, No murmur GI/: Soft Musculoskeletal: Limited ROM Skin: Warm, Dry, Normal color Neurological: Sensation intact, Motor intact, Reflexes intact, Cranial nerves intact, Alert, Oriented Psychiatric: Affect appropriate, Mood appropriate Interpretation - Radiology Interpretation Radiology Interpretation By: Radiologist Radiology Results: Negative Exam Interpreted: CT Scan Re-Evaluation - Re-Evaluation Time of Re-Evaluation: 02:13 Status: Improved Vital Signs Stable: Yes Pain Level: 0 Appearance: NAD Lungs: Clear Skin: Warm and Dry Neuro: Alert and Oriented X3 CV: RRR Critical Care Note - Critical Care Note Total Time (mins): 0 Course - Course Hematology/Chemistry: 11/15/17 13:00 11/15/17 13:00 Orders, Labs, Meds: Lab Review 11/15/17 11/15/17 11/15/17 13:00 13:00 13:00 WBC 9.66 RBC 4.39 Hgb 13.4 Hct 39.4 MCV 89.7 MCH 30.5 MCHC 34.0 RDW Coeff of Benigno 12.2 Plt Count 312 Immature Gran % (Auto) 0.2 Neut % (Auto) 63.5 Lymph % (Auto) 29.5 [place] % (Auto) 4.7 Eos % (Auto) 1.4 Baso % (Auto) 0.7 Immature Gran # (Auto) 0.0 Neut # (Auto) 6.1 Lymph # (Auto) 2.9 [place] # (Auto) 0.5 Eos # (Auto) 0.1 Baso # (Auto) 0.1 ESR 10 Sodium 139 Potassium 3.3 L Chloride 107 Carbon Dioxide 20 L Anion Gap 15.3 BUN 6 L Creatinine 0.76 Estimated GFR (MDRD) 94.00 BUN/Creatinine Ratio 7.89 Glucose 87 Calcium 9.1 Total Bilirubin 0.3 AST 23 ALT 23 Alkaline Phosphatase 119 H Total Protein 7.3 Albumin 3.8 Globulin 3.5 Albumin/Globulin Ratio 1.09 Amylase 42 Lipase 49 Urine Color Urine Clarity Urine pH Ur Specific [place] Urine Protein Urine Glucose (UA) Urine Ketones Urine Blood Urine Nitrite Urine Bilirubin Urine Urobilinogen Ur Leukocyte Esterase Urine Test 11/15/17 11/16/17 23:35 00:00 WBC RBC Hgb Hct MCV MCH MCHC RDW Coeff of Benigno Plt Count Immature Gran % (Auto) Neut % (Auto) Lymph % (Auto) [place] % (Auto) Eos % (Auto) Baso % (Auto) Immature Gran # (Auto) Neut # (Auto) Lymph # (Auto) [place] # (Auto) Eos # (Auto) Baso # (Auto) ESR Sodium Potassium Chloride Carbon Dioxide Anion Gap BUN Creatinine Estimated GFR (MDRD) BUN/Creatinine Ratio Glucose Calcium Total Bilirubin AST ALT Alkaline Phosphatase Total Protein Albumin Globulin Albumin/Globulin Ratio Amylase Lipase Urine Color Yellow Urine Clarity Clear Urine pH 6.0 Ur Specific [place] 1.020 Urine Protein Negative Urine Glucose (UA) Negative Urine Ketones Negative Urine Blood Negative Urine Nitrite Negative Urine Bilirubin Negative Urine Urobilinogen 0.2 Ur Leukocyte Esterase Negative Urine Test Negative Orders Category Date Time Status ED IV/MEDIPORT/POWERPORT .ONCE EMERGENCY 11/15/17 23:34 Active AMYLASE Stat LAB 11/15/17 13:00 Completed CBC W/ AUTO DIFF Stat LAB 11/15/17 13:00 Completed COMPREHENSIVE METABOLIC PANEL Stat LAB 11/15/17 13:00 Completed ESR Stat LAB 11/15/17 13:00 Completed LIPASE Stat LAB 11/15/17 13:00 Completed RAPID STREP SCREEN [MOLECULAR GROUP A STREP] Stat LAB 11/16/17 01:56 Ordered URINALYSIS C & S IF INDICATED Stat LAB 11/15/17 23:35 Completed URINE Stat LAB 11/16/17 00:00 Completed 0.9 % Sodium Chloride [Saline Flush] MEDS 11/15/17 23:34 Ordered 1 syr IVF PRN PRN Acetaminophen [Tylenol] MEDS 11/16/17 01:25 Discontinued 650 mg .ROUTE .STK-MED ONE Acetaminophen [Tylenol] MEDS 11/16/17 01:24 Discontinued 650 mg PO ONCE STA Dicyclomine Inj [Bentyl] MEDS 11/16/17 00:53 Discontinued 20 mg IM ONCE STA Ondansetron HCl/Pf [Zofran 4 mg/2 ml] MEDS 11/15/17 23:39 Discontinued 4 mg .ROUTE .STK-MED ONE Ondansetron HCl/Pf [Zofran 4 mg/2 ml] MEDS 11/15/17 23:36 Discontinued 4 mg IVP ONCE STA Ondansetron HCl/Pf [Zofran 4 mg/2 ml] MEDS 11/16/17 02:10 Discontinued 4 mg IVP ONCE STA Potassium Chloride [Potassium Chl 10% Oral Samantha] MEDS 11/16/17 01:57 Discontinued 20 meq PO ONCE STA Sodium Chloride 0.9% [Sodium Chloride] 1,000 ml MEDS 11/15/17 23:[address] ABDOMEN/PELVIS WO CONTRAST Stat RADS 11/16/17 00:05 Completed Medications Generic Name Dose Route Start Last Admin Trade Name Freq PRN Reason Stop Dose Admin Sodium Chloride 1 syr 11/15/17 23:34 Saline Flush IVF PRN PRN To flush IV Discontinued Medications Generic Name Dose Route Start Last Admin Trade Name Freq PRN Reason Stop Dose Admin Acetaminophen 650 mg 11/16/17 01:24 11/16/17 01:29 Tylenol PO 11/16/17 01:25 650 mg ONCE STA Administration Dicyclomine HCl 20 mg 11/16/17 00:53 11/16/17 01:07 Bentyl IM 11/16/17 00:54 20 mg ONCE STA Administration Sodium Chloride 1,000 mls @ 1,000 mls/hr 11/15/17 23:34 11/16/17 01:03 Sodium Chloride IV 11/16/17 00:33 1,000 mls/hr BOLUS STA Administration Ondansetron HCl 4 mg 11/15/17 23:36 11/16/17 01:04 Zofran 4 Mg/2 Ml IVP 11/15/17 23:37 4 mg ONCE STA Administration Ondansetron HCl 4 mg 11/16/17 02:10 Zofran 4 Mg/2 Ml IVP 11/16/17 02:11 ONCE STA Potassium Chloride 20 meq 11/16/17 01:57 11/16/17 02:04 Potassium Chl 10% Oral Samantha PO 11/16/17 01:58 20 meq ONCE STA Administration Vital Signs: Temp Pulse Resp BP Pulse Ox 11/15/17 23:05 99.4 F 104 H 20 152/83 H 98 Departure - Departure Time of Disposition: 02:14 Disposition: HOME SELF-CARE Discharge Problem: Vomiting Instructions: Acute Nausea and Vomiting (ED) Condition: Good Pt referred to PMD for follow-up: Yes IPMP verified?: No Additional Instructions: phenergan 25mg supp q 4hrs prn nausea #4---f/u wtih yhour pcp/gi tomorrow Allergies/Adverse Reactions: Allergies meperidine [From Demerol] Adverse Reaction (Verified 11/15/17 23:17) Rash morphine Adverse Reaction (Verified 11/08/17 18:49) REDNESS, BURNING AND ITCHING Home Medications: Ambulatory Orders Esomeprazole Magnesium [Nexium] 40 mg PO BID 07/21/17 Fluoxetine HCl [Prozac] 40 mg PO DAILY 07/21/17 Lamotrigine [Lamictal] 100 mg PO DAILY 07/21/17 Levothyroxine Sodium [Synthroid] 200 mcg PO DAILY 07/21/17 Norethindrone AC-Eth Estradiol [Loestrin 21 1-20 Tablet] 1 each PO DAILY Pantoprazole Sodium [Protonix] 40 mg PO BIDAC #60 tablet. 11/08/17 Sucralfate Susp [Carafate] 1 gm PO ACHS #1 bottle 11/08/17 Buspirone HCl 5 mg PO TID 11/15/17 Disposition Discussed With: Patient
== END 2017-11-16 02:25 | disposition home or self-care (01) ==
LOC: ED 23:03
DX: R11.2 Nausea with vomiting, unspecified (principal); R19.7 Diarrhea, unspecified; R10.9 Unspecified abdominal pain; E03.9 Hypothyroidism, unspecified; I10 Essential (primary) hypertension; F17.210 Nicotine dependence, cigarettes, uncomplicated; Z79.899 Other long term (current) drug therapy
CPT/HCPCS: 36415; 80053; 81001; 81025; 82150; 83690; 85025; 85651; 87651; 96361; 96372; 96374; 96376; 99283

== ENCOUNTER 2017-11-21 23:06 | Emergency (ER) | payer OTHER ==
[2017-11-21 23:11] VITALS: TEMP 97.8; BMI 40.0
[2017-11-21] MEDS ORDERED: BENTYL IM STA (23:24)
[2017-11-21] MEDS ORDERED: ZOFRAN ODT PO STA (23:24)
--- NOTE | 2017-11-22 00:15 | ED.PDOC ---
General ED Provider: Dr. RONY DIMAS Chief Complaint: Chest Pain Stated Complaint: Patient states that while at work tonight she started having sudden onset of severe right sided chest pain. This happned 3 mins ago. Time Seen by Physician: 23:10 Mode of Arrival: Walk-In Information Source: Patient Primary Care Provider: CHELO AL Nursing and Triage Documentation Reviewed and Agree: Yes Does patient meet sepsis criteria?: No System Inflammatory Response Syndrome: Not Applicable Sepsis Protocol: For patient's 13 years and over: Temp is 96.8 and below OR 101 and greater Pulse >90 BPM Resp >20/minute Acutely Altered Mental Status Are patient's symptoms suggestive of a new infection, such as: -Pneumonia -Skin, Soft Tissue -Endocarditis -UTI -Bone, Joint Infection -Implantable Device -Acute Abdominal Infection -Wound Infection -Meningitis -Blood Stream Catheter Infection -Unknown Cardiovascular Complaint Exam - Chest Pain Complaint/Exam Onset: Sudden Duration: 30 min Symptoms Are: Still present Timing: Constant Initial Severity: Severe Current Severity: Moderate Location: Reports: Right anterior Pain Radiates: Reports: None Character: Reports: Sharp Aggravating: Reports: Deep breaths Alleviating: Reports: None Associated Signs and Symptoms: Reports: Nausea. Denies: Diaphoresis, Vomiting, Fever, Palpitations, Cough, Hemoptysis, Back pain, Abdominal pain, Dizziness, Short of air, Calf pain, Calf swelling Related Surgical History: Reports: None History of Healthcare-Acquired Pneumonia: Reports: No AMI/ACS Risk Factors: Reports: None TAD Risk Factors: Reports: None Pulmonary Embolism Risk Factors: Reports: None Prior Care for this Complaint: Yes Recent Stress Test: No Recent Echo/LV Function: No JVD Present: No Subcutaneous Emphysema Present: No Diminshed Breath Sounds: No Reproducible Chest Wall Pain: Yes Bilateral Pulses Present: No Unequal Pulses Noted: No If Risk Factors for AMI/ACS Consider: EKG, Cardiac Enzymes Differential Diagnoses: Chest Wall Pain, Other (Anxiety ) Quality Indicator For Non-Traumatic Chest Pain/Syncope: EKG Performed Review of Systems - Review Of Systems Constitutional: Reports: No symptoms Eyes: Reports: No symptoms Ears, Nose, Mouth, Throat: Reports: No symptoms Respiratory: Reports: No symptoms Cardiac: Reports: Chest pain GI: Reports: Nausea : Reports: No symptoms Musculoskeletal: Reports: No symptoms Skin: Reports: No symptoms Neurological: Reports: Anxiety Endocrine: Reports: No symptoms Hematologic/Lymphatic: Reports: No symptoms All Other Systems: Reviewed and Negative Past Medical History - Past Medical History Previously Healthy: No Endocrine: Reports: Hypothyroid Cardiovascular: Reports: Hypertension Respiratory: Reports: None Hematological: Reports: None Gastrointestinal: Reports: GERD Genitourinary: Reports: None Neuro/Psych: Reports: Anxiety, Depression, Bipolar Disorder Musculoskeletal: Reports: None Cancer: Reports: None Last Menstrual Period: 11/20/17 - Surgical History General Surgical History: Reports: Cholecystectomy, Tonsillectomy, Adenoidectomy , Other (Thyroidectomy, Eye surgery right eye, D and C ) - Family History Family History: Reports: None - Social History Smoking Status: Current every day smoker, Heavy tobacco smoker Hx Substance Use: No Alcohol Screening: Occasionally - Immunizations Tetanus Shot up to Date: Yes Physical Exam - Physical Exam Appearance: Ill-appearing, Obese Ill-appearing: Mild Pain Distress: Moderate Eyes: CLIFF, EOMI, Conjunctiva clear ENT: Ears normal, Nose normal, Oropharynx normal Neck: Supple Respiratory: Airway patent, Breath sounds clear, Breath sounds equal, Respirations nonlabored Cardiovascular: RRR, Pulses normal, No rub GI/: Soft, Nontender, No masses, Bowel sounds normal, No Organomegaly Skin: Warm, Dry, Normal color Neurological: Sensation intact, Motor intact, Alert, Oriented Psychiatric: Anxious Interpretation - Radiology Interpretation Radiology Interpretation By: ED Physician Radiology Results: Negative Exam Interpreted: Portable CXR Re-Evaluation - Re-Evaluation Time of Re-Evaluation: 00:10 Status: Improved Vital Signs Stable: Yes (131/76) Critical Care Note - Critical Care Note Total Time (mins): 0 Course - Course Hematology/Chemistry: 11/21/17 23:30 11/21/17 23:30 Orders, Labs, Meds: Lab Review 11/21/17 11/21/17 23:30 23:30 WBC 9.65 RBC 4.05 L Hgb 12.6 Hct 36.1 L MCV 89.1 MCH 31.1 H MCHC 34.9 RDW Coeff of Benigno 12.1 Plt Count 320 Immature Gran % (Auto) 0.1 Neut % (Auto) 58.5 Lymph % (Auto) 33.6 [place] % (Auto) 5.7 Eos % (Auto) 1.7 Baso % (Auto) 0.4 Immature Gran # (Auto) 0.0 Neut # (Auto) 5.7 Lymph # (Auto) 3.2 [place] # (Auto) 0.6 Eos # (Auto) 0.2 Baso # (Auto) 0.0 Sodium 138 Potassium 3.2 L Chloride 109 H Carbon Dioxide 17 L Anion Gap 15.2 BUN 9 Creatinine 0.72 Estimated GFR (MDRD) 100.00 BUN/Creatinine Ratio 12.50 Glucose 96 Calcium 8.7 Total Bilirubin 0.3 AST 18 ALT 18 Alkaline Phosphatase 102 H Total Creatine Kinase 101 Troponin I < 0.0100 Total Protein 7.0 Albumin 3.7 Globulin 3.3 Albumin/Globulin Ratio 1.12 Orders Category Date Time Status EKG-(ED ONLY) Stat CARDIO 11/21/17 23:21 Completed CBC W/ AUTO DIFF Stat LAB 11/21/17 23:30 Completed COMPREHENSIVE METABOLIC PANEL Stat LAB 11/21/17 23:30 Completed CREATINE KINASE Stat LAB 11/21/17 23:30 Completed TROPONIN I Stat LAB 11/21/17 23:30 Completed Dicyclomine Inj [Bentyl] MEDS 11/21/17 23:24 Discontinued 20 mg IM ONCE STA Ondansetron [Zofran Odt] MEDS 11/21/17 23:24 Discontinued 4 mg PO ONCE STA CHEST, 1V AP ONLY Stat RADS 11/21/17 23:21 Taken Medications Discontinued Medications Generic Name Dose Route Start Last Admin Trade Name Freq PRN Reason Stop Dose Admin Dicyclomine HCl 20 mg 11/21/17 23:24 11/22/17 00:03 Bentyl IM 11/21/17 23:25 20 mg ONCE STA Administration Ondansetron HCl 4 mg 11/21/17 23:24 11/22/17 00:03 Zofran Odt PO 11/21/17 23:25 4 mg ONCE STA Administration Vital Signs: Temp Pulse Resp BP Pulse Ox 11/21/17 23:08 97.8 F 98 H 22 178/114 H 97 RON Risk Score RON Risk Score: Risk Score Odds of by 30D 0 0.1 (0.1-0.2) 1 0.3 (0.2-0.3) 2 0.4 (0.3-0.5) 3 0.7 (0.6-0.9) 4 1.2 (1.0-1.5) 5 2.2 (1.9-2.6) 6 3.0 (2.5-3.6) 7 4.8 (3.8-6.1) Departure - Departure Time of Disposition: 00:13 Disposition: HOME SELF-CARE Discharge Problem: Chest pain, Panic attack Instructions: Noncardiac Chest Pain (ED), Anxiety (ED) Condition: Good Pt referred to PMD for follow-up: Yes IPMP verified?: No Prescriptions: Dicyclomine HCl [Bentyl] 10 mg PO TID PRN #20 capsule PRN Reason: Abdominal Pain Ondansetron HCl [Zofran Tab] 4 mg PO Q8H PRN #14 tablet PRN Reason: Nausea / Vomiting Allergies/Adverse Reactions: Allergies hydrocodone Adverse Reaction (Verified 11/21/17 23:11) meperidine [From Demerol] Adverse Reaction (Verified 11/21/17 23:10) Rash morphine Adverse Reaction (Verified 11/21/17 23:10) REDNESS, BURNING AND ITCHING oxycodone Adverse Reaction (Verified 11/21/17 23:11) Home Medications: Ambulatory Orders Esomeprazole Magnesium [Nexium] 40 mg PO BID 07/21/17 Fluoxetine HCl [Prozac] 40 mg PO DAILY 07/21/17 Lamotrigine [Lamictal] 100 mg PO DAILY 07/21/17 Levothyroxine Sodium [Synthroid] 200 mcg PO DAILY 07/21/17 Norethindrone AC-Eth Estradiol [Loestrin 21 1-20 Tablet] 1 each PO DAILY Pantoprazole Sodium [Protonix] 40 mg PO BIDAC #60 tablet. 11/08/17 Sucralfate Susp [Carafate] 1 gm PO ACHS #1 bottle 11/08/17 Buspirone HCl 5 mg PO TID 11/15/17 Dicyclomine HCl [Bentyl] 10 mg PO TID PRN #20 capsule 11/22/17 Ondansetron HCl [Zofran Tab] 4 mg PO Q8H PRN #14 tablet 11/22/17 Disposition Discussed With: Patient
[2017-11-22 06:44] VITALS: BP 131/77
--- NOTE | 2017-11-22 08:13 | DI ---
EXAM: Chest one view, frontal view only. HISTORY: Chest pain. COMPARISON: 10/24/2017, 07/21/2017. FINDINGS: The heart size is normal. There is no pulmonary vascular congestion. The lungs are clear . No pleural effusion or pneumothorax is seen. No acute osseous abnormality is identified. Since t he prior study, there has been no significant interval change. IMPRESSION: No acute cardiopulmonary process.
== END 2017-11-22 00:20 | disposition home or self-care (01) ==
LOC: ED 23:06
DX: R07.9 Chest pain, unspecified (principal); F41.0 Panic disorder [episodic paroxysmal anxiety]; I10 Essential (primary) hypertension; E03.9 Hypothyroidism, unspecified; K21.9 Gastro-esophageal reflux disease without esophagitis; F17.210 Nicotine dependence, cigarettes, uncomplicated; Z79.899 Other long term (current) drug therapy; G43.909 Migraine, unspecified, not intractable, without status migrainosus
CPT/HCPCS: 36415; 80053; 82550; 84484; 85025; 93005; 93010; 96360; 96372; 99283; 99284

== ENCOUNTER 2017-11-22 15:19 | Emergency (ER) | payer OTHER ==
[2017-11-22 15:20] VITALS: BMI 40.0
[2017-11-22 15:30] VITALS: BP 134/88; TEMP 99
--- NOTE | 2017-11-22 18:37 | ED.PDOC ---
General ED Provider: Dr. CHELO HUGHES Chief Complaint: Headache Stated Complaint: Has a severe headache that stared last evening. Multiple episodes of Nausea and vomiting. Hx of Migraines and had intolerances to many meds Time Seen by Physician: 15:35 Mode of Arrival: Walk-In Information Source: Patient Exam Limitations: No limitations Primary Care Provider: CHELO AL Nursing and Triage Documentation Reviewed and Agree: Yes Does patient meet sepsis criteria?: No System Inflammatory Response Syndrome: Not Applicable Sepsis Protocol: For patient's 13 years and over: Temp is 96.8 and below OR 101 and greater Pulse >90 BPM Resp >20/minute Acutely Altered Mental Status Are patient's symptoms suggestive of a new infection, such as: -Pneumonia -Skin, Soft Tissue -Endocarditis -UTI -Bone, Joint Infection -Implantable Device -Acute Abdominal Infection -Wound Infection -Meningitis -Blood Stream Catheter Infection -Unknown Neurological Complaint Exam - Headache Complaint/Exam Onset: Sudden Duration: 24 hr Symptoms Are: Still present Timing: Constant Episodes Lasting: Hours Worst Headache Ever: No Initial Severity: Severe Current Severity: Moderate Location: Right, Left, Frontal Character: Reports: Throbbing, Pressure, Migraine Aggravating: Reports: Position change, Bright lights Alleviating: Reports: Rest, Position change Associated Signs and Symptoms: Reports: Dizziness, Nausea, Vomiting Related History: Reports: Similar episode (Usually "one Migraine CHAUDHARY " per year) SAH Risk Factors: Reports: None Meningitis Risk Factors: Reports: None SDH Risk Factors: Reports: None Temporal Arteritis Risk Factors: Reports: None Normal Head CT Within Last 12 Months: No Fundoscopic Exam: Present: Normal Findings Papilledema Present: No Temporal Artery Tenderness: Present: None Sinus Tenderness: Present: None TMJ Tenderness: Present: None Glascow Coma Scale (see protocol): 15 Meningeal Signs Positive: No Pain on Passive Flexion-Positive Kernig's: No ROM Limited In: No Limitiations Focal Weakness: Present: None Focal Sensory Loss: Present: None Gait: Normal Nystagmus Present: No Gag Reflex Present: Yes [id number]: Normal Findings Babinski Sign: Negative Right, Negative Left Heel to Toe Normal: Yes Differential Diagnoses: Tension Headache, Other (migraine) Review of Systems - Review Of Systems Constitutional: Reports: No symptoms Eyes: Reports: No symptoms Ears, Nose, Mouth, Throat: Reports: No symptoms Respiratory: Reports: No symptoms Cardiac: Reports: No symptoms GI: Reports: No symptoms : Reports: No symptoms Musculoskeletal: Reports: No symptoms Skin: Reports: No symptoms Neurological: Reports: Headache Endocrine: Reports: No symptoms Hematologic/Lymphatic: Reports: No symptoms All Other Systems: Reviewed and Negative Past Medical History - Past Medical History Previously Healthy: No Endocrine: Reports: Hypothyroid Cardiovascular: Reports: Hypertension Respiratory: Reports: None Hematological: Reports: None Gastrointestinal: Reports: GERD, Other (Hx bleeding ulcer last week - hospitalized at [facility]/had EGD) Genitourinary: Reports: None Neuro/Psych: Reports: Anxiety, Depression, Bipolar Disorder Musculoskeletal: Reports: None Cancer: Reports: None Last Menstrual Period: 11/16/17 - Surgical History General Surgical History: Reports: Cholecystectomy, Tonsillectomy, Adenoidectomy , Other (Thyroidectomy, Eye surgery right eye, D and C ) - Family History Family History: Reports: None - Social History Smoking Status: Current every day smoker, Heavy tobacco smoker Hx Substance Use: No Alcohol Screening: Occasionally - Immunizations Tetanus Shot up to Date: Yes Physical Exam - Physical Exam Appearance: Well-appearing, Well-nourished, Obese Ill-appearing: Mild Pain Distress: Moderate Eyes: CLIFF, EOMI, Conjunctiva clear ENT: Ears normal, Nose normal, Oropharynx normal Respiratory: Airway patent, Breath sounds clear, Breath sounds equal, Respirations nonlabored Cardiovascular: RRR, Pulses normal, No rub, No murmur GI/: Soft, Nontender, No masses, Bowel sounds normal, No Organomegaly Musculoskeletal: Normal strength, ROM intact, No edema, No calf tenderness Skin: Warm, Dry, Normal color Neurological: Sensation intact, Motor intact, Reflexes intact, Cranial nerves intact, Alert, Oriented Psychiatric: Affect appropriate, Mood appropriate Re-Evaluation - Re-Evaluation Time of Re-Evaluation: 19:30 Status: Improved Vital Signs Stable: Yes Appearance: NAD Lungs: Clear Skin: Warm and Dry Neuro: Alert and Oriented X3 CV: RRR Additional Comments: up walking in the department. requesting discharge/ daughter ill Critical Care Note - Critical Care Note Total Time (mins): 0 Course - Course Hematology/Chemistry: 11/22/17 19:06 11/22/17 19:06 Orders, Labs, Meds: Lab Review 11/22/17 11/22/17 19:06 19:06 WBC 7.33 RBC 4.12 L Hgb 12.7 Hct 36.8 L MCV 89.3 MCH 30.8 MCHC 34.5 RDW Coeff of Benigno 12.0 Plt Count 299 Immature Gran % (Auto) 0.1 Neut % (Auto) 57.1 Lymph % (Auto) 35.1 [place] % (Auto) 5.6 Eos % (Auto) 1.6 Baso % (Auto) 0.5 Immature Gran # (Auto) 0.0 Neut # (Auto) 4.2 Lymph # (Auto) 2.6 [place] # (Auto) 0.4 Eos # (Auto) 0.1 Baso # (Auto) 0.0 Sodium 139 Potassium 3.5 Chloride 108 H Carbon Dioxide 20 L Anion Gap 14.5 BUN 7 Creatinine 0.69 Estimated GFR (MDRD) 105.00 BUN/Creatinine Ratio 10.14 Glucose 86 Calcium 8.8 Total Bilirubin 0.4 AST 23 ALT 20 Alkaline Phosphatase 101 H Total Protein 6.8 Albumin 3.6 Globulin 3.2 Albumin/Globulin Ratio 1.13 Orders Category Date Time Status CBC W/ AUTO DIFF Stat LAB 11/22/17 19:06 Completed CMP [COMPREHENSIVE METABOLIC PANEL] Stat LAB 11/22/17 19:06 Completed Acetaminophen [Tylenol] MEDS 11/22/17 19:23 Discontinued 500 mg PO ONCE STA Promethazine HCl [Phenergan 25 mg/ml Vial] MEDS 11/22/17 18:44 Discontinued 25 mg IM ONCE STA Sumatriptan Succinate [Imitrex] MEDS 11/22/17 18:45 Discontinued 50 mg PO ONCE STA CT HEAD W/O CONTRAST Stat RADS 11/22/17 18:43 Completed Medications Discontinued Medications Generic Name Dose Route Start Last Admin Trade Name Georgeq PRN Reason Stop Dose Admin Acetaminophen 500 mg 11/22/17 19:23 11/22/17 19:43 Tylenol PO 11/22/17 19:24 500 mg ONCE STA Administration Promethazine HCl 25 mg 11/22/17 18:44 11/22/17 19:05 Phenergan 25 Mg/Ml Vial IM 11/22/17 18:45 25 mg ONCE STA Administration Sumatriptan Succinate 50 mg 11/22/17 18:45 11/22/17 18:53 Imitrex PO 11/22/17 18:46 Not Given ONCE STA Vital Signs: Temp Pulse Resp BP Pulse Ox 11/22/17 15:20 99.0 F 85 20 134/88 97 Departure - Departure Time of Disposition: 19:30 Disposition: HOME SELF-CARE Discharge Problem: Migraine Instructions: Acute Headache (ED), Acute Nausea and Vomiting (ED) Condition: Good Pt referred to PMD for follow-up: Yes (PCP) IPMP verified?: No Prescriptions: Promethazine HCl [Phenergan Tab] 25 mg PO Q6H PRN #20 tablet PRN Reason: Nausea and vomiting Allergies/Adverse Reactions: Allergies dicyclomine [From Bentyl] Adverse Reaction (Verified 11/22/17 15:34) hydrocodone Adverse Reaction (Verified 11/21/17 23:11) meperidine [From Demerol] Adverse Reaction (Verified 11/21/17 23:10) Rash morphine Adverse Reaction (Verified 11/21/17 23:10) REDNESS, BURNING AND ITCHING oxycodone Adverse Reaction (Verified 11/21/17 23:11) Home Medications: Ambulatory Orders Esomeprazole Magnesium [Nexium] 40 mg PO BID 07/21/17 Fluoxetine HCl [Prozac] 40 mg PO DAILY 07/21/17 Lamotrigine [Lamictal] 100 mg PO DAILY 07/21/17 Levothyroxine Sodium [Synthroid] 200 mcg PO DAILY 07/21/17 Norethindrone AC-Eth Estradiol [Loestrin 21 1-20 Tablet] 1 each PO DAILY Pantoprazole Sodium [Protonix] 40 mg PO BIDAC #60 tablet. 11/08/17 Sucralfate Susp [Carafate] 1 gm PO ACHS #1 bottle 11/08/17 Buspirone HCl 5 mg PO TID 11/15/17 Ondansetron HCl [Zofran Tab] 4 mg PO Q8H PRN #14 tablet 11/22/17 Promethazine HCl [Phenergan Tab] 25 mg PO Q6H PRN #20 tablet 11/22/17 Disposition Discussed With: Patient Additional Information: 1946 Patient appeared improved /Less Nausea with IM Phenergan Needed dischargr due to her child being ill Advised to follow up pcp
[2017-11-22] MEDS ORDERED: PHENERGAN 25 MG/ML VIAL IM STA (18:44)
[2017-11-22] MEDS ORDERED: IMITREX PO STA (18:45)
[2017-11-22] MEDS ORDERED: TYLENOL PO STA (19:23)
--- NOTE | 2017-11-22 19:43 | CT ---
EXAM: CT of the head without contrast. HISTORY: Headache. COMPARISON: None. TECHNIQUE: Contiguous axial images at 5 mm intervals were obtained from the base of the skull to the vertex of the calvarium. No contrast was given. FINDINGS: The CSF containing spaces are normal in size and position. There are no extraaxial fluid collections. There is no evidence of an acute intracranial hemorrhage. There are no masses or mass effect. No areas of abnormal density are identified. Mackay-white differentiation is normal. The o sseous and extracranial soft tissues are normal. IMPRESSION: No acute intracranial abnormality.
== END 2017-11-22 19:56 | disposition home or self-care (01) ==
LOC: ED 15:19
DX: G43.909 Migraine, unspecified, not intractable, without status migrainosus (principal); F17.210 Nicotine dependence, cigarettes, uncomplicated; Z79.899 Other long term (current) drug therapy
CPT/HCPCS: 36415; 80053; 85025; 96372; 99283

== ENCOUNTER 2017-12-02 22:45 | Emergency (ER) | payer OTHER ==
[2017-12-02 22:46] VITALS: BMI 40.0
[2017-12-02 22:49] VITALS: BP 138/90; TEMP 98.2
[2017-12-02] MEDS ORDERED: PHENERGAN 25 MG/ML VIAL IM STA (23:37)
[2017-12-02] MEDS ORDERED: STADOL IM STA (23:37)
--- NOTE | 2017-12-03 00:54 | CT ---
Exam: CT of the abdomen and pelvis without contrast History: Abdominal pain Technique: [address] of the abdomen pelvis without intravascular contrast FINDINGS: The lung bases are clear. No significant liver abnormality. The adrenals, pancreas and spl een are unremarkable. The stomach and hiatus are unremarkable.Prior cholecystectomy. Kidneys and pro ximal collecting system are unremarkable. The appendix is normal. Bowel loops demonstrate normal courtney marin. No inflamatory change seen in the mesentery or retroperitoneum. Vascular structures appear jasbir l. Pelvic genitourinary structures appear normal. Pelvic bowel loops are unremarkable. No inflammatory c hange in the pelvic fat. No acute abnormality of the abdominal or pelvic skeleton. Impression: 1. No inflammatory process, bowel or urinary obstruction. No acute findings of the abdomen or pelvi s.
[2017-12-03] MEDS ORDERED: STADOL IM STA (01:05)
--- NOTE | 2017-12-03 01:08 | ED.PDOC ---
General ED Provider: Dr. CHELO AL-ER Chief Complaint: Abdominal Pain Stated Complaint: im hurting Time Seen by Physician: 22:50 Mode of Arrival: Walk-In Information Source: Patient Exam Limitations: No limitations Primary Care Provider: CHELO AL Nursing and Triage Documentation Reviewed and Agree: Yes Does patient meet sepsis criteria?: No System Inflammatory Response Syndrome: Not Applicable Sepsis Protocol: For patient's 13 years and over: Temp is 96.8 and below OR 101 and greater Pulse >90 BPM Resp >20/minute Acutely Altered Mental Status Are patient's symptoms suggestive of a new infection, such as: -Pneumonia -Skin, Soft Tissue -Endocarditis -UTI -Bone, Joint Infection -Implantable Device -Acute Abdominal Infection -Wound Infection -Meningitis -Blood Stream Catheter Infection -Unknown GI Complaint Exam - Abdominal Pain Complaint/Exam Onset: Gradual Duration: several hours Symptoms Are: Still present Timing: Constant Initial Severity: Mild Current Severity: Moderate Location of Pain: Diffuse Character: Reports: Dull, Aching Aggravating: Reports: None Associated Signs and Symptoms: Reports: Nausea Review of Systems - Review Of Systems Constitutional: Reports: No symptoms Eyes: Reports: No symptoms Ears, Nose, Mouth, Throat: Reports: No symptoms Respiratory: Reports: No symptoms Cardiac: Reports: No symptoms GI: Reports: Abdominal pain, Nausea : Reports: No symptoms Musculoskeletal: Reports: No symptoms Skin: Reports: No symptoms Neurological: Reports: No symptoms Endocrine: Reports: No symptoms Hematologic/Lymphatic: Reports: No symptoms All Other Systems: Reviewed and Negative Past Medical History - Past Medical History Previously Healthy: No Endocrine: Reports: Hypothyroid Cardiovascular: Reports: Hypertension Respiratory: Reports: None Hematological: Reports: None Gastrointestinal: Reports: GERD, Other (Hx bleeding ulcer last week - hospitalized at [facility]/had EGD) Genitourinary: Reports: None Neuro/Psych: Reports: Anxiety, Depression, Bipolar Disorder Musculoskeletal: Reports: None Cancer: Reports: None Last Menstrual Period: LAST MONTH - Surgical History General Surgical History: Reports: Cholecystectomy, Tonsillectomy, Adenoidectomy , Other (Thyroidectomy, Eye surgery right eye, D and C ) - Family History Family History: Reports: None - Social History Smoking Status: Current every day smoker, Heavy tobacco smoker Hx Substance Use: No Alcohol Screening: Occasionally - Immunizations Tetanus Shot up to Date: Yes Physical Exam - Physical Exam Appearance: Well-appearing, No pain distress, Well-nourished Eyes: CLIFF, EOMI, Conjunctiva clear ENT: Ears normal Neck: Supple Respiratory: Airway patent, Breath sounds clear, Breath sounds equal, Respirations nonlabored Cardiovascular: RRR GI/: Soft, Nontender, No masses, Bowel sounds normal, No Organomegaly Musculoskeletal: Normal strength, ROM intact, No edema, No calf tenderness Skin: Warm Neurological: Sensation intact Psychiatric: Affect appropriate, Mood appropriate Interpretation - Radiology Interpretation Radiology Interpretation By: Radiologist Radiology Results: Negative Exam Interpreted: CT Scan Critical Care Note - Critical Care Note Total Time (mins): 0 Course - Course Hematology/Chemistry: 12/02/17 23:45 12/02/17 23:45 Orders, Labs, Meds: Lab Review 12/02/17 12/02/17 12/02/17 23:45 23:45 23:45 WBC 8.68 RBC 4.35 Hgb 13.5 Hct 39.0 MCV 89.7 MCH 31.0 MCHC 34.6 RDW Coeff of Benigno 12.0 Plt Count 288 Immature Gran % (Auto) 0.1 Neut % (Auto) 55.3 Lymph % (Auto) 35.8 [place] % (Auto) 6.1 Eos % (Auto) 2.1 Baso % (Auto) 0.6 Immature Gran # (Auto) 0.0 Neut # (Auto) 4.8 Lymph # (Auto) 3.1 [place] # (Auto) 0.5 Eos # (Auto) 0.2 Baso # (Auto) 0.1 ESR Sodium 137 Potassium 3.8 Chloride 107 Carbon Dioxide 21 Anion Gap 12.8 BUN 10 Creatinine 0.75 Estimated GFR (MDRD) 95.00 BUN/Creatinine Ratio 13.33 Glucose 92 Calcium 9.0 Total Bilirubin 0.4 AST 19 ALT 21 Alkaline Phosphatase 121 H Total Protein 7.4 Albumin 3.9 Globulin 3.5 Albumin/Globulin Ratio 1.11 Amylase 38 Lipase 36 Serum , Qual Negative Urine Color Urine Clarity Urine pH Ur Specific [place] Urine Protein Urine Glucose (UA) Urine Ketones Urine Blood Urine Nitrite Urine Bilirubin Urine Urobilinogen Ur Leukocyte Esterase 12/02/17 12/02/17 23:45 23:55 WBC RBC Hgb Hct MCV MCH MCHC RDW Coeff of Benigno Plt Count Immature Gran % (Auto) Neut % (Auto) Lymph % (Auto) [place] % (Auto) Eos % (Auto) Baso % (Auto) Immature Gran # (Auto) Neut # (Auto) Lymph # (Auto) [place] # (Auto) Eos # (Auto) Baso # (Auto) ESR 12 Sodium Potassium Chloride Carbon Dioxide Anion Gap BUN Creatinine Estimated GFR (MDRD) BUN/Creatinine Ratio Glucose Calcium Total Bilirubin AST ALT Alkaline Phosphatase Total Protein Albumin Globulin Albumin/Globulin Ratio Amylase Lipase Serum , Qual Urine Color Yellow Urine Clarity Slightly Urine pH 5.5 Ur Specific [place] 1.020 Urine Protein Negative Urine Glucose (UA) Negative Urine Ketones Negative Urine Blood Negative Urine Nitrite Negative Urine Bilirubin Negative Urine Urobilinogen 0.2 Ur Leukocyte Esterase Negative Orders Category Date Time Status AMYLASE Stat LAB 12/02/17 23:45 Completed CBC W/ AUTO DIFF Stat LAB 12/02/17 23:45 Completed COMPREHENSIVE METABOLIC PANEL Stat LAB 12/02/17 23:45 Completed ESR Stat LAB 12/02/17 23:45 Completed LIPASE Stat LAB 12/02/17 23:45 Completed SERUM Stat LAB 12/02/17 23:45 Completed URINALYSIS C & S IF INDICATED Stat LAB 12/02/17 23:55 Completed Butorphanol Tartrate [Stadol] MEDS 12/03/17 01:05 Stat 1 mg IM ONCE STA Butorphanol Tartrate [Stadol] MEDS 12/02/17 23:37 Discontinued 2 mg IM ONCE STA Promethazine HCl [Phenergan 25 mg/ml Vial] MEDS 12/02/17 23:37 Discontinued 25 mg IM ONCE STA CT ABDOMEN/PELVIS WO CONTRAST Stat RADS 12/02/17 23:37 Completed Medications Generic Name Dose Route Start Last Admin Trade Name Freq PRN Reason Stop Dose Admin Butorphanol Tartrate 1 mg 12/03/17 01:05 Stadol IM 12/03/17 01:06 ONCE STA Discontinued Medications Generic Name Dose Route Start Last Admin Trade Name Freq PRN Reason Stop Dose Admin Butorphanol Tartrate 2 mg 12/02/17 23:37 12/02/17 23:51 Stadol IM 12/02/17 23:38 2 mg ONCE STA Administration Promethazine HCl 25 mg 12/02/17 23:37 12/02/17 23:49 Phenergan 25 Mg/Ml Vial IM 12/02/17 23:38 25 mg ONCE STA Administration Vital Signs: Temp Pulse Resp BP Pulse Ox 12/02/17 22:46 98.2 F 114 H 20 138/90 97 Departure - Departure Time of Disposition: 01:07 Disposition: HOME SELF-CARE Discharge Problem: Abdominal pain Instructions: Acute Abdominal Pain (ED) Condition: Good Pt referred to PMD for follow-up: Yes IPMP verified?: No Additional Instructions: f/u with pcp and dr moore Allergies/Adverse Reactions: Allergies dicyclomine [From Bentyl] Adverse Reaction (Verified 11/22/17 15:34) hydrocodone Adverse Reaction (Verified 11/21/17 23:11) meperidine [From Demerol] Adverse Reaction (Verified 11/21/17 23:10) Rash morphine Adverse Reaction (Verified 11/21/17 23:10) REDNESS, BURNING AND ITCHING oxycodone Adverse Reaction (Verified 11/21/17 23:11) Home Medications: Ambulatory Orders Esomeprazole Magnesium [Nexium] 40 mg PO BID 07/21/17 Fluoxetine HCl [Prozac] 40 mg PO DAILY 07/21/17 Lamotrigine [Lamictal] 100 mg PO DAILY 07/21/17 Levothyroxine Sodium [Synthroid] 200 mcg PO DAILY 07/21/17 Norethindrone AC-Eth Estradiol [Loestrin 21 1-20 Tablet] 1 each PO DAILY Pantoprazole Sodium [Protonix] 40 mg PO BIDAC #60 tablet. 11/08/17 Sucralfate Susp [Carafate] 1 gm PO ACHS #1 bottle 11/08/17 Buspirone HCl 5 mg PO TID 11/15/17 Ondansetron HCl [Zofran Tab] 4 mg PO Q8H PRN #14 tablet 11/22/17 Promethazine HCl [Phenergan Tab] 25 mg PO Q6H PRN #20 tablet 11/22/17 Disposition Discussed With: Patient
== END 2017-12-03 02:14 | disposition home or self-care (01) ==
LOC: ED 22:45
DX: R10.9 Unspecified abdominal pain (principal); R11.0 Nausea; K21.9 Gastro-esophageal reflux disease without esophagitis; E03.9 Hypothyroidism, unspecified; I10 Essential (primary) hypertension; F17.210 Nicotine dependence, cigarettes, uncomplicated; Z79.899 Other long term (current) drug therapy
CPT/HCPCS: 36415; 80053; 81001; 82150; 83690; 84703; 85025; 85651; 96372; 99283

== ENCOUNTER 2017-12-14 23:43 | Emergency (ER) ==
[2017-12-14 23:54] VITALS: BP 145/99; TEMP 99.1; BMI 39.8
[2017-12-15] MEDS ORDERED: TORADOL IM STA (00:29)
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
== END 2017-12-15 01:00 | disposition left against medical advice (07) ==
LOC: ED 23:43
DX: R07.89 Other chest pain (principal); W50.0XXA Accidental hit or strike by another person, initial encounter; F17.210 Nicotine dependence, cigarettes, uncomplicated
CPT/HCPCS: 96372; 99282

== ENCOUNTER 2017-12-21 16:22 | Emergency (ER) ==
[2017-12-21 16:39] VITALS: BP 145/90; TEMP 100.1; BMI 39.9
--- NOTE | 2017-12-21 17:14 | US ---
EXAM: ULTRASOUND ABDOMEN LIMITED HISTORY: Abdominal pain FINDINGS: Ultrasound abdomen, limited. Mackay-scale ultrasound and color Doppler was performed. Live r size was measured at 13 cm, within normal limits. The liver parenchyma demonstrates diffuse increas ed sound attenuation suggesting steatosis. No focal hepatic lesion or evidence of intrahepatic biliar y dilatation was identified. The main portal vein is patent and hepatopedal. Gallbladder has been removed. Common bile duct diameter is normal at 0.6 cm. The visualized pancrea s was within normal limits. No ascites. IMPRESSION: Fatty liver. Post cholecystectomy state with normal common bile duct diameter. No ascites.
--- NOTE | 2017-12-21 18:06 | CT ---
EXAM: CT of the abdomen and pelvis without contrast. HISTORY: Pain. PROCEDURE: Contiguous axial CT images of the abdomen and pelvis without contrast with coronal and sa gittal reformats. FINDINGS: The liver is normal in appearance. The gallbladder is surgically absent. The pancreas, sp misbah, adrenal glands and kidneys are normal in appearance. The abdominal aorta is normal in appearan ce. The visualized loops of bowel and appendix are normal in appearance. No free fluid or free air i n the abdomen or pelvis. The bladder is minimally filled which limits the evaluation. The uterus is unremarkable. There is a 2.2 cm fluid density cyst in the right adnexa. The bones and soft tissues ar e unremarkable. Impression: 2.2 cm simple right adnexal cyst. Cholecystectomy.
--- NOTE | 2017-12-21 18:07 | ED.PDOC ---
General ED Provider: Dr. ADELA DOZIER Chief Complaint: Abdominal Pain Stated Complaint: RUQ PAIN Time Seen by Physician: 16:30 Mode of Arrival: Walk-In Information Source: Patient Exam Limitations: No limitations Primary Care Provider: CHELO AL Nursing and Triage Documentation Reviewed and Agree: Yes Does patient meet sepsis criteria?: No If yes, has appropriate treatment been initiated?: No System Inflammatory Response Syndrome: Not Applicable Sepsis Protocol: For patient's 13 years and over: Temp is 96.8 and below OR 101 and greater Pulse >90 BPM Resp >20/minute Acutely Altered Mental Status Are patient's symptoms suggestive of a new infection, such as: -Pneumonia -Skin, Soft Tissue -Endocarditis -UTI -Bone, Joint Infection -Implantable Device -Acute Abdominal Infection -Wound Infection -Meningitis -Blood Stream Catheter Infection -Unknown GI Complaint Exam - Abdominal Pain Complaint/Exam Onset: Sudden (RUQ) Duration: TODAY AT WORK Symptoms Are: Still present Initial Severity: Moderate Current Severity: Moderate Location of Pain: RUQ Radiates To: Denies: Chest, Back, Flank, LLQ, RLQ, Inguinal Character: Reports: Cramping Aggravating: Reports: None Alleviating: Reports: None Associated Signs and Symptoms: Denies: Diaphoresis, Fever, Cough, Chest pain, Dizziness, Back pain, Constipation, Blood in stool, Dysuria, Urinary frequency, Decreased urine output, Decreased appetite, Vaginal bleeding, Vaginal discharge , Nausea, Vomiting, Diarrhea, Sore throat, Decreased activity Related History: Reports: Similar episode AAA Risk Factors: Reports: None Cardiac Risk Factors: Reports: Smoking Ectopic Risk Factors: Reports: None Ovarian Torsion Risk Factors: Reports: None Surgical Obstruction Risk Factors: Reports: None Related Surgical History: Reports: None Patient Rh Status: Unknown Abdominal Findings: Present: None Differential Diagnoses: Appendicitis, Bowel Obstruction, Constipation, Renal Colic, Ureteral Stone Review of Systems - Review Of Systems Constitutional: Reports: No symptoms Eyes: Reports: No symptoms Ears, Nose, Mouth, Throat: Reports: No symptoms Respiratory: Reports: No symptoms Cardiac: Reports: No symptoms GI: Reports: Abdominal pain, Nausea : Reports: No symptoms Musculoskeletal: Reports: No symptoms Skin: Reports: No symptoms Neurological: Reports: No symptoms Endocrine: Reports: No symptoms Hematologic/Lymphatic: Reports: No symptoms All Other Systems: Reviewed and Negative Past Medical History - Past Medical History Previously Healthy: No Endocrine: Reports: Hypothyroid Cardiovascular: Reports: Hypertension Respiratory: Reports: None Hematological: Reports: None Gastrointestinal: Reports: GERD, Other (Hx bleeding ulcer last week - hospitalized at [facility] [place]/had EGD) Genitourinary: Reports: None Neuro/Psych: Reports: Anxiety, Depression, Bipolar Disorder Musculoskeletal: Reports: None Cancer: Reports: None Last Menstrual Period: 12/12/17 - Surgical History General Surgical History: Reports: Cholecystectomy, Tonsillectomy, Adenoidectomy , Other (Thyroidectomy, Eye surgery right eye, D and C ) - Family History Family History: Reports: None - Social History Smoking Status: Current every day smoker, Heavy tobacco smoker Hx Substance Use: No Alcohol Screening: Occasionally Physical Exam - Physical Exam Appearance: Well-appearing, No pain distress, Well-nourished Eyes: CLIFF, EOMI, Conjunctiva clear ENT: Ears normal, Nose normal, Oropharynx normal Respiratory: Airway patent, Breath sounds clear, Breath sounds equal, Respirations nonlabored Cardiovascular: RRR, Pulses normal, No rub, No murmur GI/: Soft, Nontender, No masses, Bowel sounds normal, No Organomegaly Musculoskeletal: Normal strength, ROM intact, No edema, No calf tenderness Skin: Warm, Dry, Normal color Neurological: Sensation intact, Motor intact, Reflexes intact, Cranial nerves intact, Alert, Oriented Psychiatric: Affect appropriate, Mood appropriate Interpretation - Radiology Interpretation Radiology Interpretation By: Radiologist Radiology Results: Positive (FATTY LIVER) Critical Care Note - Critical Care Note Total Time (mins): 0 Course - Course Hematology/Chemistry: 12/21/17 17:29 12/21/17 17:29 Orders, Labs, Meds: Lab Review 12/21/17 12/21/17 12/21/17 17:25 17:25 17:29 WBC 7.45 RBC 4.14 L Hgb 12.7 Hct 36.6 L MCV 88.4 MCH 30.7 MCHC 34.7 RDW Coeff of Benigno 11.9 Plt Count 275 Immature Gran % (Auto) 0.1 Neut % (Auto) 55.3 Lymph % (Auto) 36.0 [place] % (Auto) 5.5 Eos % (Auto) 2.4 Baso % (Auto) 0.7 Immature Gran # (Auto) 0.0 Neut # (Auto) 4.1 Lymph # (Auto) 2.7 [place] # (Auto) 0.4 Eos # (Auto) 0.2 Baso # (Auto) 0.1 Sodium Potassium Chloride Carbon Dioxide Anion Gap BUN Creatinine Estimated GFR (MDRD) BUN/Creatinine Ratio Glucose Calcium Total Bilirubin AST ALT Alkaline Phosphatase Total Protein Albumin Globulin Albumin/Globulin Ratio Amylase Lipase Urine Color Yellow Urine Clarity Cloudy Urine pH 6.0 Ur Specific [place] 1.025 Urine Protein Trace Urine Glucose (UA) Negative Urine Ketones Negative Urine Blood Negative Urine Nitrite Negative Urine Bilirubin Negative Urine Urobilinogen 0.2 Ur Leukocyte Esterase Trace Urine Microscopic WBC 0-2 Ur Squamous Epith Cells 50-100 Urine Test Negative 12/21/17 17:29 WBC RBC Hgb Hct MCV MCH MCHC RDW Coeff of Benigno Plt Count Immature Gran % (Auto) Neut % (Auto) Lymph % (Auto) [place] % (Auto) Eos % (Auto) Baso % (Auto) Immature Gran # (Auto) Neut # (Auto) Lymph # (Auto) [place] # (Auto) Eos # (Auto) Baso # (Auto) Sodium 137 Potassium 3.3 L Chloride 108 H Carbon Dioxide 20 L Anion Gap 12.3 BUN 8 Creatinine 0.68 Estimated GFR (MDRD) 106.00 BUN/Creatinine Ratio 11.76 Glucose 105 Calcium 8.5 Total Bilirubin 0.3 AST 22 ALT 21 Alkaline Phosphatase 103 H Total Protein 6.7 Albumin 3.3 L Globulin 3.4 Albumin/Globulin Ratio 0.97 Amylase 41 Lipase 33 Urine Color Urine Clarity Urine pH Ur Specific [place] Urine Protein Urine Glucose (UA) Urine Ketones Urine Blood Urine Nitrite Urine Bilirubin Urine Urobilinogen Ur Leukocyte Esterase Urine Microscopic WBC Ur Squamous Epith Cells Urine Test Orders Category Date Time Status NPO REMINDER: IMAGING ONCE CARE 12/21/17 16:37 Completed AMYLASE Stat LAB 12/21/17 17:29 Completed CBC W/ AUTO DIFF Stat LAB 12/21/17 17:29 Completed COMPREHENSIVE METABOLIC PANEL Stat LAB 12/21/17 17:29 Completed LIPASE Stat LAB 12/21/17 17:29 Completed URINALYSIS C & S IF INDICATED Stat LAB 12/21/17 17:25 Completed URINE Stat LAB 12/21/17 17:[address] ABDOMEN/PELVIS WO CONTRAST Stat RADS 12/21/17 17:18 Taken U/S ABDOMEN, RT. UPPER QUAD Stat RADS 12/21/17 16:37 Completed Vital Signs: Temp Pulse Resp BP Pulse Ox 12/21/17 16:24 100.1 F H 119 H 20 145/90 H 96 Departure - Departure Time of Disposition: 06:20 Disposition: HOME SELF-CARE Discharge Problem: Abdominal pain, Fatty liver Instructions: Non-Alcoholic Fatty Liver Disease (ED) Condition: Good Pt referred to PMD for follow-up: Yes IPMP verified?: No Additional Instructions: Please call your Family Physician as soon as possible to schedule a follow-up appointment. Allergies/Adverse Reactions: Allergies dicyclomine [From Bentyl] Adverse Reaction (Verified 12/21/17 16:32) Rash hydrocodone Adverse Reaction (Verified 12/21/17 16:32) Rash meperidine [From Demerol] Adverse Reaction (Verified 12/21/17 16:32) Rash morphine Adverse Reaction (Verified 12/21/17 16:32) REDNESS, BURNING AND ITCHING oxycodone Adverse Reaction (Verified 12/21/17 16:32) Rash Home Medications: Ambulatory Orders Esomeprazole Magnesium [Nexium] 40 mg PO BID 07/21/17 Fluoxetine HCl [Prozac] 40 mg PO DAILY 07/21/17 Lamotrigine [Lamictal] 100 mg PO DAILY 07/21/17 Levothyroxine Sodium [Synthroid] 200 mcg PO DAILY 07/21/17 Norethindrone AC-Eth Estradiol [Loestrin 21 1-20 Tablet] 1 each PO DAILY Pantoprazole Sodium [Protonix] 40 mg PO BIDAC #60 tablet. 11/08/17 Sucralfate Susp [Carafate] 1 gm PO ACHS #1 bottle 11/08/17 Buspirone HCl 5 mg PO TID 11/15/17 Ondansetron HCl [Zofran Tab] 4 mg PO Q8H PRN #14 tablet 11/22/17
== END 2017-12-21 18:19 | disposition home or self-care (01) ==
LOC: ED 16:22
DX: R10.11 Right upper quadrant pain (principal); K76.0 Fatty (change of) liver, not elsewhere classified; I10 Essential (primary) hypertension; F17.210 Nicotine dependence, cigarettes, uncomplicated; Z79.899 Other long term (current) drug therapy
CPT/HCPCS: 36415; 80053; 81001; 81025; 82150; 83690; 85025; 99283

== ENCOUNTER 2017-12-27 21:03 | Emergency (ER) | payer OTHER ==
[2017-12-27 21:16] VITALS: TEMP 99; BMI 41.3
[2017-12-27 21:46] VITALS: BP 153/97
[2017-12-27] MEDS ORDERED: TORADOL IM STA (23:02)
--- NOTE | 2017-12-27 23:05 | ED.PDOC ---
General ED Provider: Dr. RONY DIMAS Chief Complaint: Abdominal Pain Stated Complaint: my stomach hurts Time Seen by Physician: 22:30 Mode of Arrival: Walk-In Information Source: Patient Exam Limitations: No limitations Primary Care Provider: CHELO AL Seen Within Last 72 Hours for Same Complaint By: ED (multiple visits for similar complains) Nursing and Triage Documentation Reviewed and Agree: Yes Does patient meet sepsis criteria?: No If yes, has appropriate treatment been initiated?: No System Inflammatory Response Syndrome: Not Applicable Sepsis Protocol: For patient's 13 years and over: Temp is 96.8 and below OR 101 and greater Pulse >90 BPM Resp >20/minute Acutely Altered Mental Status Are patient's symptoms suggestive of a new infection, such as: -Pneumonia -Skin, Soft Tissue -Endocarditis -UTI -Bone, Joint Infection -Implantable Device -Acute Abdominal Infection -Wound Infection -Meningitis -Blood Stream Catheter Infection -Unknown GI Complaint Exam - Abdominal Pain Complaint/Exam Onset: Sudden (while at work) Duration: 30 mins Symptoms Are: Still present Timing: Constant Initial Severity: Mild Current Severity: Moderate Location of Pain: Diffuse Radiates To: Reports: Back Character: Reports: Aching, Throbbing Aggravating: Reports: None Alleviating: Reports: None Associated Signs and Symptoms: Denies: Diaphoresis, Fever, Cough, Chest pain, Dizziness, Back pain, Constipation, Blood in stool, Dysuria, Urinary frequency, Decreased urine output, Decreased appetite, Vaginal bleeding, Vaginal discharge , Nausea, Vomiting, Diarrhea, Sore throat, Decreased activity Related History: Reports: Similar episode AAA Risk Factors: Reports: None Cardiac Risk Factors: Reports: None Ectopic Risk Factors: Reports: None Surgical Obstruction Risk Factors: Reports: None Related Surgical History: Reports: None Patient Rh Status: Unknown Abdominal Findings: Present: Other (mild tenderness to palpation ). Absent: Rebound tenderness Review of Systems - Review Of Systems Constitutional: Reports: No symptoms Eyes: Reports: No symptoms Ears, Nose, Mouth, Throat: Reports: No symptoms Respiratory: Reports: No symptoms Cardiac: Reports: No symptoms GI: Reports: Abdominal pain : Reports: No symptoms Musculoskeletal: Reports: No symptoms Skin: Reports: No symptoms Neurological: Reports: No symptoms Endocrine: Reports: No symptoms Hematologic/Lymphatic: Reports: No symptoms All Other Systems: Reviewed and Negative Past Medical History - Past Medical History Previously Healthy: No Endocrine: Reports: Hypothyroid Cardiovascular: Reports: Hypertension Respiratory: Reports: None Hematological: Reports: None Gastrointestinal: Reports: GERD, Other (Hx bleeding ulcer last week - hospitalized at [facility]/had EGD) Genitourinary: Reports: None Neuro/Psych: Reports: Anxiety, Depression, Bipolar Disorder Musculoskeletal: Reports: None Cancer: Reports: None Last Menstrual Period: DECEMBER 15-2017 - Surgical History General Surgical History: Reports: Cholecystectomy, Tonsillectomy, Adenoidectomy , Other (Thyroidectomy, Eye surgery right eye, D and C ) - Family History Family History: Reports: None - Social History Smoking Status: Current every day smoker, Heavy tobacco smoker Hx Substance Use: No Alcohol Screening: Occasionally - Immunizations Tetanus Shot up to Date: (UNKNOWN) Physical Exam - Physical Exam Appearance: Ill-appearing, Obese Ill-appearing: Mild Pain Distress: Mild Eyes: CLIFF, EOMI, Conjunctiva clear ENT: Ears normal, Nose normal, Oropharynx normal Respiratory: Airway patent, Breath sounds clear, Breath sounds equal, Respirations nonlabored Cardiovascular: RRR, Pulses normal, No rub, No murmur GI/: Soft, No masses, Bowel sounds normal, No Organomegaly, Tender (mild diffuse ) Musculoskeletal: Normal strength, ROM intact, No edema, No calf tenderness Skin: Warm, Dry, Normal color Neurological: Sensation intact, Motor intact, Reflexes intact, Cranial nerves intact, Alert, Oriented Psychiatric: Affect appropriate, Mood appropriate Critical Care Note - Critical Care Note Total Time (mins): 0 Course - Course Hematology/Chemistry: 12/27/17 22:45 12/27/17 22:45 Orders, Labs, Meds: Lab Review 12/27/17 12/27/17 12/27/17 22:45 22:45 22:59 WBC 8.52 RBC 4.18 L Hgb 12.8 Hct 36.9 L MCV 88.3 MCH 30.6 MCHC 34.7 RDW Coeff of Benigno 12.1 Plt Count 279 Immature Gran % (Auto) 0.2 Neut % (Auto) 53.4 Lymph % (Auto) 38.5 [place] % (Auto) 5.3 Eos % (Auto) 2.1 Baso % (Auto) 0.5 Immature Gran # (Auto) 0.0 Neut # (Auto) 4.6 Lymph # (Auto) 3.3 [place] # (Auto) 0.5 Eos # (Auto) 0.2 Baso # (Auto) 0.0 Sodium 140 Potassium 3.6 Chloride 110 H Carbon Dioxide 21 Anion Gap 12.6 BUN 8 Creatinine 0.75 Estimated GFR (MDRD) 95.00 BUN/Creatinine Ratio 10.66 Glucose 88 Calcium 8.9 Total Bilirubin 0.2 AST 22 ALT 23 Alkaline Phosphatase 109 H Total Protein 6.8 Albumin 3.6 Globulin 3.2 Albumin/Globulin Ratio 1.13 Amylase 40 Lipase 42 Urine Color Yellow Urine Clarity Clear Urine pH 6.0 Ur Specific [place] 1.025 Urine Protein Negative Urine Glucose (UA) Negative Urine Ketones Negative Urine Blood Negative Urine Nitrite Negative Urine Bilirubin Negative Urine Urobilinogen 0.2 Ur Leukocyte Esterase Negative Orders Category Date Time Status AMYLASE Stat LAB 12/27/17 22:45 Completed CBC W/ AUTO DIFF Stat LAB 12/27/17 22:45 Completed COMPREHENSIVE METABOLIC PANEL Stat LAB 12/27/17 22:45 Completed LIPASE Stat LAB 12/27/17 22:45 Completed URINALYSIS C & S IF INDICATED Stat LAB 12/27/17 22:59 Completed Ketorolac Tromethamine [Toradol] MEDS 12/27/17 23:02 Discontinued 60 mg IM ONCE STA Medications Discontinued Medications Generic Name Dose Route Start Last Admin Trade Name Freq PRN Reason Stop Dose Admin Ketorolac Tromethamine 60 mg 12/27/17 23:02 12/27/17 23:19 Toradol IM 12/27/17 23:03 60 mg ONCE STA Administration Vital Signs: Temp Pulse Resp BP Pulse Ox 12/27/17 21:15 153/97 H 12/27/17 21:04 99 F 85 20 138/92 H 96 Departure - Departure Time of Disposition: 23:42 Disposition: HOME SELF-CARE Discharge Problem: Abdominal pain, Fatty liver Instructions: Chronic Abdominal Pain (ED) Condition: Stable Pt referred to PMD for follow-up: Yes IPMP verified?: No Additional Instructions: Follow up with PCP in 1-2 days Avoid soda Drinks for now. Allergies/Adverse Reactions: Allergies dicyclomine [From Bentyl] Adverse Reaction (Verified 12/27/17 21:16) Rash hydrocodone Adverse Reaction (Verified 12/27/17 21:16) Rash meperidine [From Demerol] Adverse Reaction (Verified 12/27/17 21:16) Rash morphine Adverse Reaction (Verified 08/07/18 21:16) REDNESS, BURNING AND ITCHING oxycodone Adverse Reaction (Verified 12/27/17 21:16) Rash Home Medications: Ambulatory Orders Esomeprazole Magnesium [Nexium] 40 mg PO BID 07/21/17 Fluoxetine HCl [Prozac] 40 mg PO DAILY 07/21/17 Lamotrigine [Lamictal] 100 mg PO DAILY 07/21/17 Levothyroxine Sodium [Synthroid] 200 mcg PO DAILY 07/21/17 Norethindrone AC-Eth Estradiol [Loestrin 21 1-20 Tablet] 1 each PO DAILY Pantoprazole Sodium [Protonix] 40 mg PO BIDAC #60 tablet. 11/08/17 Sucralfate Susp [Carafate] 1 gm PO ACHS #1 bottle 11/08/17 Buspirone HCl 5 mg PO TID 11/15/17 Ondansetron HCl [Zofran Tab] 4 mg PO Q8H PRN #14 tablet 11/22/17 Disposition Discussed With: Patient
== END 2017-12-27 23:50 | disposition home or self-care (01) ==
LOC: ED 21:03
DX: R10.9 Unspecified abdominal pain (principal); K76.0 Fatty (change of) liver, not elsewhere classified; I10 Essential (primary) hypertension; Z79.899 Other long term (current) drug therapy; F17.210 Nicotine dependence, cigarettes, uncomplicated
CPT/HCPCS: 36415; 80053; 81001; 82150; 83690; 85025; 96372; 99283

== ENCOUNTER 2018-01-18 23:17 | Emergency (ER) ==
[2018-01-18] MEDS ORDERED: SODIUM CHLORIDE 1,000 ML IV STA (23:22)
[2018-01-18] MEDS ORDERED: VALIUM SYRINGE IVP STA (23:23)
[2018-01-18 23:52] VITALS: BP 156/97; TEMP 98.9; BMI 43.9
[2018-01-19] MEDS ORDERED: VALIUM ONE (00:08)
[2018-01-19] MEDS ORDERED: ATIVAN IVP STA (00:28)
[2018-01-19] MEDS ORDERED: TORADOL IVP STA (01:31)
[2018-01-19] MEDS ORDERED: TORADOL ONE (01:33)
--- NOTE | 2018-01-19 01:47 | CT ---
EXAM: CTA thorax HISTORY: Chest pain dyspnea COMPARISON: None. FINDINGS: Contiguous axial images obtained through the thorax following uneventful administration in travenous contrast utilizing 5-mm collimation. Sagittal coronal reconstructions were imaged and revi ewed. Source images were utilized create rotating 3-D MIP images.. The thoracic inlet is unremarkab le. The heart is normal in size without pericardial effusion. There is suboptimal opacification of the pulmonary arteries without central embolus. The lungs are clear bilaterally.. Bone windows reve als no evidence of lytic or blastic lesions. There has been prior cholecystectomy. IMPRESSION: Suboptimal opacification of the pulmonary arteries without central embolus. No evidence of active pulmonary disease. Prior cholecystectomy
--- NOTE | 2018-01-19 02:17 | ED.PDOC ---
General ED Provider: Dr. CHELO AL-ER Chief Complaint: Chest Pain Stated Complaint: i had sob Time Seen by Physician: 23:40 Mode of Arrival: Walk-In Information Source: Patient, EMT Exam Limitations: No limitations Primary Care Provider: CHELO AL Nursing and Triage Documentation Reviewed and Agree: Yes Does patient meet sepsis criteria?: No System Inflammatory Response Syndrome: Not Applicable Sepsis Protocol: For patient's 13 years and over: Temp is 96.8 and below OR 101 and greater Pulse >90 BPM Resp >20/minute Acutely Altered Mental Status Are patient's symptoms suggestive of a new infection, such as: -Pneumonia -Skin, Soft Tissue -Endocarditis -UTI -Bone, Joint Infection -Implantable Device -Acute Abdominal Infection -Wound Infection -Meningitis -Blood Stream Catheter Infection -Unknown Psychological Complaint Exam - Psychiatric Complaint/Exam Patient Complains Of: Present: Other Onset/Duration: one hour Symptoms Are: Still present Initial Severity: Mild Current Severity: Mild Character: Present: Anxious Aggravating: Reports: None Associated Signs And Symptoms: Denies: Hostile, Confused, Hallucinating, Paranoid behavior, Sleep disturbance, Appetite change Completed Suicide Risk Factors: None Patient In Custody Of Police: No Social Withdrawal Present: No Social Isolation Present: No Prior Suicide Attempt: No Injury From Prior Suicide Attempt: No Related Surgical History: Reports: None Patient Uncooperative For Exam: No Mood: Present: Anxious Appearance: Present: Clean Insight: Present: Good Memory: Intact Judgement: Normal Danger To Others: No Differential Diagnoses: Anxiety Review of Systems - Review Of Systems Constitutional: Reports: No symptoms Eyes: Reports: No symptoms Ears, Nose, Mouth, Throat: Reports: No symptoms Respiratory: Reports: Short of air Cardiac: Reports: Chest pain GI: Reports: No symptoms : Reports: No symptoms Musculoskeletal: Reports: No symptoms Skin: Reports: No symptoms Neurological: Reports: No symptoms Endocrine: Reports: No symptoms Hematologic/Lymphatic: Reports: No symptoms All Other Systems: Reviewed and Negative Past Medical History - Past Medical History Previously Healthy: No Endocrine: Reports: Hypothyroid Cardiovascular: Reports: Hypertension Respiratory: Reports: None Hematological: Reports: None Gastrointestinal: Reports: GERD, Other (Hx bleeding ulcer last week - hospitalized at [facility]/had EGD) Genitourinary: Reports: None Neuro/Psych: Reports: Anxiety, Depression, Bipolar Disorder Musculoskeletal: Reports: None Cancer: Reports: None Last Menstrual Period: 01/11/18 x 1 day - Surgical History General Surgical History: Reports: Cholecystectomy, Tonsillectomy, Adenoidectomy , Other (Thyroidectomy, Eye surgery right eye, D and C ) - Family History Family History: Reports: None - Social History Smoking Status: Current every day smoker, Heavy tobacco smoker Hx Substance Use: No Alcohol Screening: Occasionally - Immunizations Tetanus Shot up to Date: No (unsure) Physical Exam - Physical Exam Appearance: Well-appearing, No pain distress, Well-nourished Eyes: CLIFF ENT: Ears normal Neck: Supple Respiratory: Airway patent Cardiovascular: RRR, Pulses normal, No rub, No murmur GI/: Soft, Nontender, No masses, Bowel sounds normal, No Organomegaly Musculoskeletal: Normal strength, ROM intact, No edema, No calf tenderness Skin: Warm, Dry, Normal color Neurological: Sensation intact, Motor intact, Reflexes intact, Cranial nerves intact, Alert, Oriented Psychiatric: Affect appropriate, Mood appropriate, Anxious Interpretation - Radiology Interpretation Radiology Interpretation By: Radiologist Radiology Results: Negative Exam Interpreted: CT Scan - EKG Interpretation Time of EKG #1: 02:17 Rate: Normal Rhythm: Sinus Ectopy: None [place]: NL ST Segment: Normal Interpretation: nsr Re-Evaluation - Re-Evaluation Time of Re-Evaluation: 02:17 Status: Improved Vital Signs Stable: Yes Pain Level: 0 Appearance: NAD Lungs: Clear Skin: Warm and Dry Neuro: Alert and Oriented X3 CV: RRR Critical Care Note - Critical Care Note Total Time (mins): 0 Course - Course Hematology/Chemistry: 01/18/18 23:40 01/18/18 23:40 Orders, Labs, Meds: Lab Review 01/18/18 01/18/18 01/18/18 23:21 23:21 23:40 WBC 8.65 RBC 4.34 Hgb 13.3 Hct 38.4 MCV 88.5 MCH 30.6 MCHC 34.6 RDW Coeff of Benigno 12.1 Plt Count 305 Immature Gran % (Auto) 0.2 Neut % (Auto) 53.7 Lymph % (Auto) 37.7 [place] % (Auto) 5.0 Eos % (Auto) 2.7 Baso % (Auto) 0.7 Immature Gran # (Auto) 0.0 Neut # (Auto) 4.7 Lymph # (Auto) 3.3 [place] # (Auto) 0.4 Eos # (Auto) 0.2 Baso # (Auto) 0.1 Puncture Site Lrad O2 Saturation 98.0 ABG pH 7.544 H* ABG pCO2 24.7 L ABG pO2 88.0 ABG HCO3 21.3 L ABG Total CO2 22 ABG Base Excess -1 Jan Test + FiO2 % 21.0 Sodium Potassium Chloride Carbon Dioxide Anion Gap BUN Creatinine Estimated GFR (MDRD) BUN/Creatinine Ratio Glucose Calcium Total Bilirubin AST ALT Alkaline Phosphatase Total Creatine Kinase CK-MB (CK-2) CK-MB (CK-2) % Troponin I Total Protein Albumin Globulin Albumin/Globulin Ratio Amylase Lipase TSH Free T4 Serum , Qual Negative 01/18/18 01/19/18 23:40 00:00 WBC RBC Hgb Hct MCV MCH MCHC RDW Coeff of Benigno Plt Count Immature Gran % (Auto) Neut % (Auto) Lymph % (Auto) [place] % (Auto) Eos % (Auto) Baso % (Auto) Immature Gran # (Auto) Neut # (Auto) Lymph # (Auto) [place] # (Auto) Eos # (Auto) Baso # (Auto) Puncture Site O2 Saturation ABG pH ABG pCO2 ABG pO2 ABG HCO3 ABG Total CO2 ABG Base Excess Jan Test FiO2 % Sodium 139 Potassium 3.3 L Chloride 109 H Carbon Dioxide 21 Anion Gap 12.3 BUN 9 Creatinine 0.73 Estimated GFR (MDRD) 98.00 BUN/Creatinine Ratio 12.32 Glucose 88 Calcium 8.7 Total Bilirubin 0.3 AST 21 ALT 19 Alkaline Phosphatase 102 H Total Creatine Kinase 115 CK-MB (CK-2) 0.6 CK-MB (CK-2) % 0.69068 Troponin I < 0.0100 Total Protein 7.3 Albumin 3.7 Globulin 3.6 Albumin/Globulin Ratio 1.03 Amylase 42 Lipase 42 TSH 3.815 Free T4 1.10 Serum , Qual Orders Category Date Time Status ABG DRAW REQUEST Stat CARDIO 01/18/18 23:21 Ordered EKG-(ED ONLY) Stat CARDIO 01/18/18 23:21 Ordered NPO REMINDER: IMAGING ONCE CARE 01/18/18 23:23 Completed ED IV/MEDIPORT/POWERPORT .ONCE EMERGENCY 01/18/18 23:22 Active ABG Stat LAB 01/18/18 23:21 Completed AMYLASE Stat LAB 01/18/18 23:40 Completed CBC W/ AUTO DIFF Stat LAB 01/18/18 23:40 Completed COMPREHENSIVE METABOLIC PANEL Stat LAB 01/18/18 23:40 Completed CREATINE KINASE Stat LAB 01/18/18 23:40 Completed FREE T4 (FREE THYROXINE) Stat LAB 01/19/18 00:00 Completed LIPASE Stat LAB 01/18/18 23:40 Completed SERUM Stat LAB 01/18/18 23:21 Completed TROPONIN I Stat LAB 01/18/18 23:40 Completed TSH [THYROID STIMULATING HORMONE] Stat LAB 01/19/18 00:00 Completed 0.9 % Sodium Chloride [Saline Flush] MEDS 01/18/18 23:22 Ordered 1 syr IVF PRN PRN Diazepam Syringe [Valium Syringe] MEDS 01/18/18 23:23 Discontinued 5 mg IVP ONCE STA Diazepam [Valium] MEDS 01/19/18 00:08 Discontinued 5 mg .ROUTE .STK-MED ONE Ketorolac Tromethamine [Toradol] MEDS 01/19/18 01:33 Discontinued 30 mg .ROUTE .STK-MED ONE Ketorolac Tromethamine [Toradol] MEDS 01/19/18 01:31 Discontinued 30 mg IVP ONCE STA Lorazepam [Ativan] MEDS 01/19/18 00:28 Discontinued 1 mg IVP ONCE STA Sodium Chloride 0.9% [Sodium Chloride] 1,000 ml MEDS 01/18/18 23:22 Active IV 100 mls/hr CT CHEST PE PROTOCOL Stat RADS 01/19/18 00:13 Completed Medications Generic Name Dose Route Start Last Admin Trade Name Freq PRN Reason Stop Dose Admin Sodium Chloride 1,000 mls @ 100 mls/hr 01/18/18 23:22 01/19/18 00:31 Sodium Chloride IV 01/19/18 09:21 100 mls/hr .Q10H STA Administration Sodium Chloride 1 syr 01/18/18 23:22 Saline Flush IVF PRN PRN To flush IV Discontinued Medications Generic Name Dose Route Start Last Admin Trade Name Freq PRN Reason Stop Dose Admin Diazepam 5 mg 01/18/18 23:23 01/19/18 00:31 Valium Syringe IVP 01/18/18 23:24 Not Given ONCE STA Ketorolac Tromethamine 30 mg 01/19/18 01:31 01/19/18 01:34 Toradol IVP 01/19/18 01:32 30 mg ONCE STA Administration Lorazepam 1 mg 01/19/18 00:28 01/19/18 00:35 Ativan IVP 01/19/18 00:29 1 mg ONCE STA Administration Vital Signs: Temp Pulse Resp BP Pulse Ox 01/18/18 23:38 98.9 F 98 H 22 156/97 H 96 Departure - Departure Time of Disposition: 02:17 Disposition: HOME SELF-CARE Discharge Problem: Anxiety Instructions: Generalized Anxiety Disorder (ED) Condition: Good Pt referred to PMD for follow-up: Yes IPMP verified?: No Allergies/Adverse Reactions: Allergies dicyclomine [From Bentyl] Adverse Reaction (Verified 01/18/18 23:51) Rash hydrocodone Adverse Reaction (Verified 01/18/18 23:51) Rash meperidine [From Demerol] Adverse Reaction (Verified 01/18/18 23:51) Rash morphine Adverse Reaction (Verified 01/18/18 23:51) REDNESS, BURNING AND ITCHING oxycodone Adverse Reaction (Verified 01/18/18 23:51) Rash Home Medications: Ambulatory Orders Esomeprazole Magnesium [Nexium] 40 mg PO BID 07/21/17 Fluoxetine HCl [Prozac] 40 mg PO DAILY 07/21/17 Lamotrigine [Lamictal] 100 mg PO DAILY 07/21/17 Levothyroxine Sodium [Synthroid] 200 mcg PO DAILY 07/21/17 Norethindrone AC-Eth Estradiol [Loestrin 21 1-20 Tablet] 1 each PO DAILY Pantoprazole Sodium [Protonix] 40 mg PO BIDAC #60 tablet. 11/08/17 Sucralfate Susp [Carafate] 1 gm PO ACHS #1 bottle 11/08/17 Buspirone HCl 5 mg PO TID 11/15/17 Ondansetron HCl [Zofran Tab] 4 mg PO Q8H PRN #14 tablet 11/22/17 Disposition Discussed With: Patient
== END 2018-01-19 03:19 | disposition home or self-care (01) ==
LOC: ED 23:17
DX: F41.9 Anxiety disorder, unspecified (principal); F17.210 Nicotine dependence, cigarettes, uncomplicated; Z79.899 Other long term (current) drug therapy; R07.1 Chest pain on breathing; R06.4 Hyperventilation; R20.0 Anesthesia of skin
CPT/HCPCS: 36415; 80053; 82150; 82550; 82553; 82803; 83690; 84439; 84443; 84484; 84703; 85025; 93005; 93010; 96361; 96374; 96375; 99283

== ENCOUNTER 2018-01-29 20:39 | Emergency (ER) | payer OTHER ==
[2018-01-29 20:49] VITALS: TEMP 99.3; BMI 41.5
--- NOTE | 2018-01-29 21:11 | ED.PDOC ---
General ED Provider: Dr. RONY DIMAS Chief Complaint: Shortness of Air Stated Complaint: Patient is a 22 year old female who comes to the ER with a recent (3 days) diagnosis of Pneumonia. She states that she was placed on bacterium but only took it once a day when she can remember. Today she states that she is worse and that she has some pleurisy chest pain and fever on 100.3 today. Time Seen by Physician: 21:11 Mode of Arrival: Walk-In Information Source: Patient Exam Limitations: No limitations Primary Care Provider: CHELO AL Nursing and Triage Documentation Reviewed and Agree: Yes Does patient meet sepsis criteria?: No System Inflammatory Response Syndrome: Pulse >90 BPM Sepsis Protocol: For patient's 13 years and over: Temp is 96.8 and below OR 101 and greater Pulse >90 BPM Resp >20/minute Acutely Altered Mental Status Are patient's symptoms suggestive of a new infection, such as: -Pneumonia -Skin, Soft Tissue -Endocarditis -UTI -Bone, Joint Infection -Implantable Device -Acute Abdominal Infection -Wound Infection -Meningitis -Blood Stream Catheter Infection -Unknown Respiratory Complaint Exam - Shortness of Air Complaint/Exam Onset/Duration: 2 days Symptoms Are: Still present Timing: Constant Initial Severity: Mild Current Severity: Mild Aggravating: Reports: URI, Smoke exposure Associated Signs and Symptoms: Reports: Wheezing, Chest pain with cough, Chest pain (with breathing ). Denies: Cough, Fever, Chills, Diaphoresis, Nasal congestion, Dizziness, Calf pain, Calf swelling, Edema, Rapid breathing, Labored breathing, Decreased intake Pulmonary Embolism Risk Factors: Reports: None Cardiac Risk Factors: Reports: None Pseudomonas Risk Factors: Reports: None Tuberculosis Risk Factors: Reports: None Home Oxygen Use: No Recent Stress Test: No Recent Echo/LV Function: No Respiratory Distress: None Stridor Present: No Tracheal Deviation: No Subcutaneous Emphysema: No Accessory Muscle Use: No Retractions: Not Present Diminished Breath Sounds: No Prolonged Expiratory Phase: No Unable to Speak Full Sentences: No Fatigue: No Leg Swelling: No Kendy's Sign Present: No Grunting Respirations: No Kussmaul Respirations: No Differential Diagnoses: Pneumonia, URI Review of Systems - Review Of Systems Constitutional: Reports: No symptoms Eyes: Reports: No symptoms Ears, Nose, Mouth, Throat: Reports: No symptoms Respiratory: Reports: Cough, Short of air, Wheezing Cardiac: Reports: No symptoms GI: Reports: No symptoms : Reports: No symptoms Musculoskeletal: Reports: No symptoms Skin: Reports: No symptoms Neurological: Reports: No symptoms Endocrine: Reports: No symptoms Hematologic/Lymphatic: Reports: No symptoms All Other Systems: Reviewed and Negative Past Medical History - Past Medical History Previously Healthy: No Endocrine: Reports: Hypothyroid Cardiovascular: Reports: Hypertension Respiratory: Reports: None Hematological: Reports: None Gastrointestinal: Reports: GERD, Other (Hx bleeding ulcer last week - hospitalized at [facility]/had EGD) Genitourinary: Reports: None Neuro/Psych: Reports: Anxiety, Depression, Bipolar Disorder Musculoskeletal: Reports: None Cancer: Reports: None Last Menstrual Period: 01/11-01/14 - Surgical History General Surgical History: Reports: Cholecystectomy, Tonsillectomy, Adenoidectomy , Other (Thyroidectomy, Eye surgery right eye, D and C ) - Family History Family History: Reports: None - Social History Smoking Status: Current every day smoker, Heavy tobacco smoker Hx Substance Use: No Alcohol Screening: Occasionally - Immunizations Tetanus Shot up to Date: Yes Physical Exam - Physical Exam Appearance: Ill-appearing, Obese Ill-appearing: Mild Pain Distress: Mild Neck: Supple Respiratory: Rhonchi, Wheezes Cardiovascular: Tachycardia GI/: Soft Musculoskeletal: Normal strength, ROM intact Skin: Warm, Dry Neurological: Alert, Oriented Psychiatric: Anxious Interpretation - Radiology Interpretation Radiology Interpretation By: ED Physician Radiology Results: Negative Exam Interpreted: CXR Critical Care Note - Critical Care Note Total Time (mins): 0 Course - Course Hematology/Chemistry: 01/29/18 21:52 01/29/18 21:52 Orders, Labs, Meds: Lab Review 01/29/18 01/29/18 01/29/18 21:40 21:52 21:52 WBC 10.69 H RBC 4.20 Hgb 12.9 Hct 37.1 MCV 88.3 MCH 30.7 MCHC 34.8 RDW Coeff of Benigno 12.1 Plt Count 266 Immature Gran % (Auto) 0.3 Neut % (Auto) 58.6 Lymph % (Auto) 33.1 [place] % (Auto) 5.1 Eos % (Auto) 2.4 Baso % (Auto) 0.5 Immature Gran # (Auto) 0.0 Neut # (Auto) 6.3 Lymph # (Auto) 3.5 H [place] # (Auto) 0.6 Eos # (Auto) 0.3 Baso # (Auto) 0.1 D-Dimer (Manual) Sodium 139 Potassium 3.3 L Chloride 111 H Carbon Dioxide 21 L Anion Gap 10.3 BUN 6 L Creatinine 0.73 Estimated GFR (MDRD) 98.00 BUN/Creatinine Ratio 8.21 Glucose 111 H Calcium 8.6 Total Bilirubin < 0.1 L AST 40 H ALT 36 H Alkaline Phosphatase 105 Total Protein 7.1 Albumin 3.9 Globulin 3.2 Albumin/Globulin Ratio 1.22 Urine Test Negative 01/29/18 21:52 WBC RBC Hgb Hct MCV MCH MCHC RDW Coeff of Benigno Plt Count Immature Gran % (Auto) Neut % (Auto) Lymph % (Auto) [place] % (Auto) Eos % (Auto) Baso % (Auto) Immature Gran # (Auto) Neut # (Auto) Lymph # (Auto) [place] # (Auto) Eos # (Auto) Baso # (Auto) D-Dimer (Manual) 456.96 Sodium Potassium Chloride Carbon Dioxide Anion Gap BUN Creatinine Estimated GFR (MDRD) BUN/Creatinine Ratio Glucose Calcium Total Bilirubin AST ALT Alkaline Phosphatase Total Protein Albumin Globulin Albumin/Globulin Ratio Urine Test Orders Category Date Time Status NEBULIZER TREATMENT Stat CARDIO 01/29/18 21:36 Completed ED IV/MEDIPORT/POWERPORT .ONCE EMERGENCY 01/29/18 21:37 Active BLOOD CULTURE (ED ONLY) Stat LAB 01/29/18 21:52 Received CBC W/ AUTO DIFF Stat LAB 01/29/18 21:52 Completed COMPREHENSIVE METABOLIC PANEL Stat LAB 01/29/18 21:52 Completed D-DIMER Stat LAB 01/29/18 21:52 Completed URINE Stat LAB 01/29/18 21:40 Completed 0.9 % Sodium Chloride [Saline Flush] MEDS 01/29/18 21:38 Ordered 1 syr IVF PRN PRN Ipratropium/Albuterol Neb [Duoneb] MEDS 01/29/18 21:36 Discontinued 1 vial NEB ONCE STA Methylprednisolone Sod Succ/Pf [Solu-Medrol 125 mg] MEDS 01/29/18 21:38 Discontinued 125 mg IVP ONCE STA CHEST, 2 VIEWS PA & LAT Stat RADS 01/29/18 21:36 Taken Medications Generic Name Dose Route Start Last Admin Trade Name Freq PRN Reason Stop Dose Admin Sodium Chloride 1 syr 01/29/18 21:38 01/29/18 22:05 Saline Flush IVF 1 syr PRN PRN Administration To flush IV Discontinued Medications Generic Name Dose Route Start Last Admin Trade Name [place] PRN Reason Stop Dose Admin Albuterol/Ipratropium 1 vial 01/29/18 21:36 01/29/18 21:50 Duoneb NEB 01/29/18 21:37 1 vial ONCE STA Administration Methylprednisolone Sodium Succinate 125 mg 01/29/18 21:38 01/29/18 22:03 Solu-Medrol 125 Mg IVP 01/29/18 21:39 125 mg ONCE STA Administration Vital Signs: Temp Pulse Resp BP Pulse Ox 01/29/18 20:40 99.3 F 105 H 20 141/81 H 95 Departure - Departure Time of Disposition: 23:20 Disposition: HOME SELF-CARE Discharge Problem: Bronchitis Instructions: Acute Bronchitis (ED) Condition: Stable Pt referred to PMD for follow-up: Yes IPMP verified?: No Additional Instructions: Continue home antibiotics. Follow up with PCP in 3 days. Prescriptions: Prednisone 20 mg PO DAILYWM #5 tablet Allergies/Adverse Reactions: Allergies dicyclomine [From Bentyl] Adverse Reaction (Verified 01/29/18 20:51) Rash hydrocodone Adverse Reaction (Verified 01/29/18 20:51) Rash meperidine [From Demerol] Adverse Reaction (Verified 01/29/18 20:51) Rash morphine Adverse Reaction (Verified 01/29/18 20:51) REDNESS, BURNING AND ITCHING oxycodone Adverse Reaction (Verified 01/29/18 20:51) Rash Home Medications: Ambulatory Orders Esomeprazole Magnesium [Nexium] 40 mg PO BID 07/21/17 Fluoxetine HCl [Prozac] 40 mg PO DAILY 07/21/17 Lamotrigine [Lamictal] 150 mg PO DAILY 07/21/17 Levothyroxine Sodium [Synthroid] 200 mcg PO DAILY 07/21/17 Norethindrone AC-Eth Estradiol [Loestrin 21 1-20 Tablet] 1 each PO DAILY Pantoprazole Sodium [Protonix] 40 mg PO BIDAC #60 tablet. 11/08/17 Buspirone HCl 5 mg PO TID 11/15/17 Ondansetron HCl [Zofran Tab] 4 mg PO Q8H PRN #14 tablet 11/22/17 Prednisone 20 mg PO DAILYWM #5 tablet 01/29/18 Ropinirole HCl [Ropinirole ER] 2 mg PO BEDTIME 01/29/18 Sulfamethoxazole/Trimethoprim [Bactrim Ds Tablet] 1 each PO BID 01/29/18 Disposition Discussed With: Patient
[2018-01-29] MEDS ORDERED: DUONEB NEB STA (21:36)
[2018-01-29] MEDS ORDERED: SOLU-MEDROL 125 MG IVP STA (21:38)
[2018-01-29 23:39] VITALS: BP 146/97
--- NOTE | 2018-01-30 07:34 | DI ---
EXAM: CHEST FRONTAL VIEW HISTORY: Cough and shortness of breath. COMPARISON: 12/15/2017 FINDINGS: Heart size and mediastinum remain within normal limits. Lungs are free of infiltrate. No consolidation or pleural fluid. There is no pneumothorax or acute bony finding. IMPRESSION: Findings within normal limits.
== END 2018-01-29 23:39 | disposition home or self-care (01) ==
LOC: ED 20:39
DX: J40 Bronchitis, not specified as acute or chronic (principal); F17.210 Nicotine dependence, cigarettes, uncomplicated; Z79.899 Other long term (current) drug therapy
CPT/HCPCS: 36415; 80053; 81025; 85025; 85379; 87040; 94640; 96374; 99283

== ENCOUNTER 2018-02-15 20:51 | Outpatient (CLI) | payer OTHER | END 2018-02-15 20:52 | disposition home or self-care (01) | LOC: LAB 20:51 | PROVIDERS: ATTEND Clinical Nurse Specialist | DX: E03.9 Hypothyroidism, unspecified (principal); F33.1 Major depressive disorder, recurrent, moderate; F41.9 Anxiety disorder, unspecified; G25.81 Restless legs syndrome; R11.0 Nausea | CPT/HCPCS: 36415; 80053; 84439; 84443; 85025 ==

== ENCOUNTER 2018-05-26 02:43 | Emergency (ER) ==
[2018-05-26 02:51] VITALS: TEMP 99.2; BMI 43.9
[2018-05-26] MEDS ORDERED: TORADOL IVP STA (03:19)
[2018-05-26] MEDS ORDERED: LACTATED RINGERS 1,000 ML IV STA (03:20)
[2018-05-26] MEDS ORDERED: ZOFRAN 4 MG/2 ML IVP STA (03:20)
--- NOTE | 2018-05-26 03:24 | ED.PDOC ---
General ED Provider: Dr. RONY DIMAS Chief Complaint: Abdominal Pain Stated Complaint: Patient is a a 22 year old female who comes to the Er with right lower quadrant pain. Feels like prior ovarian cyst that has ruptured. Time Seen by Physician: 03:22 Mode of Arrival: Walk-In Information Source: Patient Exam Limitations: No limitations Primary Care Provider: SHELLY EATON Nursing and Triage Documentation Reviewed and Agree: Yes Does patient meet sepsis criteria?: No System Inflammatory Response Syndrome: Pulse >90 BPM Sepsis Protocol: For patient's 13 years and over: Temp is 96.8 and below OR 101 and greater Pulse >90 BPM Resp >20/minute Acutely Altered Mental Status Are patient's symptoms suggestive of a new infection, such as: -Pneumonia -Skin, Soft Tissue -Endocarditis -UTI -Bone, Joint Infection -Implantable Device -Acute Abdominal Infection -Wound Infection -Meningitis -Blood Stream Catheter Infection -Unknown Review of Systems - Review Of Systems Constitutional: Reports: No symptoms GI: Reports: Abdominal pain Neurological: Reports: Anxiety All Other Systems: Reviewed and Negative Past Medical History - Past Medical History Previously Healthy: No Endocrine: Reports: Hypothyroid Cardiovascular: Reports: Hypertension Respiratory: Reports: None Hematological: Reports: None Gastrointestinal: Reports: GERD, Other (Hx bleeding ulcer last week - hospitalized at [facility]/had EGD) Genitourinary: Reports: Other (Ovarian cysts ) Neuro/Psych: Reports: Anxiety, Depression, Bipolar Disorder Musculoskeletal: Reports: None Cancer: Reports: None Last Menstrual Period: 3-4 WEEKS AGO - Surgical History General Surgical History: Reports: Cholecystectomy, Tonsillectomy, Adenoidectomy , Other (Thyroidectomy, Eye surgery right eye, D and C ) - Family History Family History: Reports: None - Social History Smoking Status: Current every day smoker, Light tobacco smoker Hx Substance Use: No Alcohol Screening: Occasionally - Immunizations Tetanus Shot up to Date: Yes Physical Exam - Physical Exam Appearance: Ill-appearing, Obese Ill-appearing: Mild Pain Distress: Severe Eyes: CLIFF, EOMI, Conjunctiva clear ENT: Ears normal, Nose normal, Oropharynx normal Neck: Supple Respiratory: Airway patent, Breath sounds clear, Breath sounds equal, Respirations nonlabored Cardiovascular: RRR, Pulses normal, No rub, No murmur GI/: Soft, No masses, Bowel sounds normal, No Organomegaly, Tender (Right lower quadrant pain ) Musculoskeletal: Normal strength, ROM intact, No edema, No calf tenderness Skin: Warm, Dry, Normal color Neurological: Sensation intact, Motor intact, Cranial nerves intact, Alert, Oriented Psychiatric: Affect appropriate, Mood appropriate Re-Evaluation - Re-Evaluation Time of Re-Evaluation: 03:46 Status: Improved Vital Signs Stable: Yes Critical Care Note - Critical Care Note Total Time (mins): 0 Comments: Insists of leaving AMA due to no ride. Educated that we have not determined reason for abdominal pain. This could be due to Appendicitis or perforated bowel which can lead to sepsis and . Return to the ER as soon as possible if worse. Course - Course Hematology/Chemistry: 05/26/18 03:20 Orders, Labs, Meds: Lab Review 05/26/18 05/26/18 05/26/18 03:20 03:23 03:27 WBC 12.10 H RBC 4.31 Hgb 13.2 Hct 38.4 MCV 89.1 MCH 30.6 MCHC 34.4 RDW Coeff of Benigno 12.1 Plt Count 346 Immature Gran % (Auto) 0.4 Neut % (Auto) 83.0 Lymph % (Auto) 11.5 [place] % (Auto) 4.9 Eos % (Auto) 0.0 Baso % (Auto) 0.2 Immature Gran # (Auto) 0.1 Neut # (Auto) 10.1 H Lymph # (Auto) 1.4 [place] # (Auto) 0.6 Eos # (Auto) 0.0 Baso # (Auto) 0.0 Urine Color Yellow Urine Clarity Clear Urine pH 6.0 Ur Specific [place] <=1.005 Urine Protein Negative Urine Glucose (UA) Negative Urine Ketones Negative Urine Blood 1+ Urine Nitrite Negative Urine Bilirubin Negative Urine Urobilinogen 0.2 Ur Leukocyte Esterase Negative Urine Microscopic RBC 2-5 Urine Microscopic WBC 0-2 Ur Squamous Epith Cells 0-2 Urine Test Negative Orders Category Date Time Status ED IV/MEDIPORT/POWERPORT .ONCE EMERGENCY 05/26/18 03:20 Active AMYLASE Stat LAB 05/26/18 03:20 Ordered CBC W/ AUTO DIFF Stat LAB 05/26/18 03:20 Completed COMPREHENSIVE METABOLIC PANEL Stat LAB 05/26/18 03:20 Ordered LIPASE Stat LAB 05/26/18 03:20 Ordered UA [URINALYSIS C & S IF INDICATED] Stat LAB 05/26/18 03:27 Results URINE Stat LAB 05/26/18 03:23 Completed 0.9 % Sodium Chloride [Saline Flush] MEDS 05/26/18 03:20 Ordered 1 syr IVF PRN PRN Ketorolac Tromethamine [Toradol] MEDS 05/26/18 03:19 Discontinued 30 mg IVP ONCE STA Ondansetron HCl/Pf [Zofran 4 mg/2 ml] MEDS 05/26/18 03:20 Discontinued 4 mg IVP ONCE STA Ringers Lactated Solution [Lactated Ringers] 1,000 ml MEDS 05/26/18 03:[address] ABD/PEL WO RENAL STONE PROT Stat RADS 05/26/18 03:21 Ordered Medications Generic Name Dose Route Start Last Admin Trade Name Freq PRN Reason Stop Dose Admin Lactated Ringer's 1,000 mls @ 1,000 mls/hr 05/26/18 03:20 Lactated Ringers IV 05/26/18 04:19 BOLUS STA Sodium Chloride 1 syr 05/26/18 03:20 05/26/18 03:44 Saline Flush IVF 1 syr PRN PRN Administration To flush IV Discontinued Medications Generic Name Dose Route Start Last Admin Trade Name Freq PRN Reason Stop Dose Admin Ketorolac Tromethamine 30 mg 05/26/18 03:19 05/26/18 03:42 Toradol IVP 05/26/18 03:20 30 mg ONCE STA Administration Ondansetron HCl 4 mg 05/26/18 03:20 Zofran 4 Mg/2 Ml IVP 05/26/18 03:21 ONCE STA Vital Signs: Temp Pulse Resp BP Pulse Ox 05/26/18 02:43 99.2 F 138 H 20 151/89 H 97 Departure - Departure Time of Disposition: 03:50 Disposition: AMA Discharge Problem: Abdominal pain Instructions: Ovarian Cyst (ED) Condition: Stable Pt referred to PMD for follow-up: Yes IPMP verified?: No Additional Instructions: Follow up with PCP in 3 days Continue home medications. Keep APt with OBGYN for hysterectomy Allergies/Adverse Reactions: Allergies dicyclomine [From Bentyl] Adverse Reaction (Verified 05/26/18 02:49) Rash hydrocodone Adverse Reaction (Verified 05/26/18 02:49) Rash meperidine [From Demerol] Adverse Reaction (Verified 05/26/18 02:49) Rash morphine Adverse Reaction (Verified 05/26/18 02:49) REDNESS, BURNING AND ITCHING oxycodone Adverse Reaction (Verified 05/26/18 02:49) Rash Home Medications: Ambulatory Orders Esomeprazole Magnesium [Nexium] 40 mg PO BID 07/21/17 Lamotrigine [Lamictal] 150 mg PO DAILY 07/21/17 Levothyroxine Sodium [Synthroid] 212 mcg PO DAILY 07/21/17 Norethindrone AC-Eth Estradiol [Loestrin 21 1-20 Tablet] 1 each PO DAILY Ropinirole HCl [Ropinirole ER] 0.5 mg PO BEDTIME 01/29/18 Amitriptyline HCl 20 mg PO BEDTIME 05/26/18 Ketorolac Tromethamine [Toradol] 10 mg PO Q6HR PRN 05/26/18 Trazodone HCl 50 mg PO BEDTIME 05/26/18 Disposition Discussed With: Patient, Family
[2018-05-26 03:40] LABS: URINE PREGNANCY TEST NEGATIVE (NEGATIVE)
[2018-05-26 04:01] VITALS: BP 113/77
== END 2018-05-26 03:50 | disposition left against medical advice (07) ==
LOC: ED 02:43
DX: R10.31 Right lower quadrant pain (principal); I10 Essential (primary) hypertension; E03.9 Hypothyroidism, unspecified; Z87.42 Personal history of other diseases of the female genital tract; Z79.899 Other long term (current) drug therapy; F17.210 Nicotine dependence, cigarettes, uncomplicated; Z87.19 Personal history of other diseases of the digestive system
CPT/HCPCS: 36415; 80053; 81001; 81025; 82150; 83690; 85025; 96374; 99284